=== PATIENT | female | born 1945 | race Caucasian/White ===

== ENCOUNTER 2021-02-26 15:54 | Inpatient (IN) | payer MEDICARE ==
[~2021-02-26] VITALS: Ht 167.6 cm; Wt 65.8 kg
--- NOTE | 2021-02-26 15:54 | NUR ---
PT BIB [facility] FROM [facility] C/O AGGRESSIVE BEHAVIOR TOWARDS STAFF. PT IS AAOX4, NOT IN RESPIRATORY DISTRESS, V/S STABLE, KEPT RESTED AND COMFORTABLE. WILL CONTINUE TO MONITOR.
--- NOTE | 2021-02-26 16:18 | NUR ---
PT SEEN AND EXAMINED BY .
[2021-02-26] MEDS ORDERED: MAGN400O6 PO (16:30)
[2021-02-26] MEDS ORDERED: BISA10SU11 RC (16:30)
[2021-02-26] MEDS ORDERED: TYL2T PO (16:30)
[2021-02-26] MEDS ORDERED: QUET25TA PO (16:30)
[2021-02-26] MEDS ORDERED: ATOR10TA PO (16:30)
[2021-02-26] MEDS ORDERED: ACET-868 PO (16:30)
[2021-02-26] MEDS ORDERED: INSU100V27 SQ (16:30)
[2021-02-26] MEDS ORDERED: NA P133E RC (16:30)
--- NOTE | 2021-02-26 16:30 | NUR ---
ER PHLEB AT BEDSIDE FOR BLOOD DRAW.
--- NOTE | 2021-02-26 16:39 | NUR ---
MOVE PACKET TURNED IN.
[2021-02-26 16:45] LABS: BASOPHILS # (AUTO) 0.1 /CMM (0.0-0.2); BASOPHILS % (AUTO) 0.9 % (0.0-2.0); EOSINOPHILS % (AUTO) 1.3 % (0.0-6.0); HEMATOCRIT 36 % (33-45); HEMOGLOBIN 12.2 g/dL (11.5-14.8); LYMPHOCYTES # (AUTO) 1.3 /CMM (0.8-4.8); LYMPHOCYTES % (AUTO) 15.4 % (20.0-44.0); MEAN CORPUSCULAR HGB CONC 34 g/dl (31.0-36.0); MEAN CORPUSCULAR VOLUME 98 fL (82-100); MONOCYTES # (AUTO) 0.5 /CMM (0.1-1.30); MONOCYTES % (AUTO) 5.9 % (2.0-12.0); NEUTROPHILS # (AUTO) 6.6 /CMM (1.8-8.9); NEUTROPHILS % (AUTO) 76.5 % (43.0-81.0); PLATELET COUNT (AUTO) 268 /CMM (150-450); RED BLOOD CELL COUNT(AUTO) 3.63 MIL/uL (4.0-5.2); WHITE BLOOD COUNT (AUTO) 8.6 K/uL (4.3-11.0)
--- NOTE | 2021-02-26 17:08 | NUR ---
URINE SPECIMEN COLLECTED AND SENT TO LAB.
[2021-02-26 17:20] LABS: ALANINE AMINOTRANSFERASE 47 U/L (12-78); ALBUMIN 3.4 g/dL (3.4-5.0); ALKALINE PHOSPHATASE 87 U/L (46-116); ASPARTATE AMINOTRANSFERASE 18 U/L (15-37); BILIRUBIN,DIRECT 0.1 mg/dL (0.0-0.2); BILIRUBIN,TOTAL 0.3 mg/dL (0.2-1.0); CALCIUM, SERUM 8.9 mg/dL (8.5-10.1); CARBON DIOXIDE 24 mmol/L (21-32); CHLORIDE 100 mmol/L (98-107); CREATININE 0.9 mg/dL (0.6-1.3); POTASSIUM 3.7 mmol/L (3.5-5.1); SODIUM SERUM 134 mmol/L (136-145); TOTAL PROTEIN, SERUM 6.8 g/dL (6.4-8.2); UREA NITROGEN, BLOOD 17 mg/dL (7-18)
[2021-02-26 17:21] LABS: BILIRUBIN,URINE Negative (NEGATIVE); COLOR,URINE YELLOW (YELLOW); LEUKOCYTE ESTERASE ,URINE Negative (NEGATIVE); NITRITE, URINE Negative (NEGATIVE); PH,URINE 5.5 (5.0-8.0); PROTEIN,URINE Negative (NEGATIVE); UGLUCOSE 500 MG/DL mg/dL (NEGATIVE); UROBILINOGEN,URINE 0.2 EU/dL (0.2)
[2021-02-26 17:21] LABS: ACETAMINOPHEN < 2 ug/ml (10-30); ALCOHOL, BLOOD < 3 mg/dL (0-0); GLUCOSE 407 mg/dL (74-106)
[2021-02-26 17:23] LABS: BACTERIA,URINE Rare /HPF (None Seen); SQUAMOUS EPITHELIAL CELL,UR Few /HPF (None Seen); WBC,URINE NONE SEEN /HPF (0-3)
--- NOTE | 2021-02-26 17:28 | NUR ---
PT IS BACK FROM THE CT SCAN.
[2021-02-26] MEDS ORDERED: LORAZEPAM INJ 2 MG/ML VIAL ONE (17:30)
[2021-02-26] MEDS ORDERED: LORAZEPAM INJ 2 MG/ML VIAL IM ONE (17:30)
--- NOTE | 2021-02-26 18:16 | NUR ---
COVID SWAB DONE AND SENT TO LAB
[2021-02-26] MEDS ORDERED: INSULIN REGULAR, HUMAN 100 UNIT/ML 10 ML VIAL SQ ONE (18:30)
[2021-02-26] MEDS ORDERED: IV NS 0.9% 1,000 ML BAG IV ONE (18:30)
[2021-02-26] MEDS ORDERED: INSULIN REGULAR, HUMAN 100 UNIT/ML 10 ML VIAL ONE (18:47)
--- NOTE | 2021-02-26 20:25 | NUR ---
report given to FAA RN for ERICA.
--- NOTE | 2021-02-26 20:47 | NUR ---
Patient taken up to assigned room for ERICA.
[2021-02-26] MEDS ORDERED: MAG HYDROX/AL HYDROX/SIMETH 30 ML UDC PO PRN (21:30)
[2021-02-26] MEDS ORDERED: ACETAMINOPHEN 325 MG TABLET PO PRN (21:30)
[2021-02-26] MEDS ORDERED: BLOOD SUGAR DIAGNOSTIC 1 EACH STRIP IN ONE (21:30)
[2021-02-26] MEDS ORDERED: MAGNESIUM HYDROXIDE 30 ML UDC PO PRN (21:30)
[2021-02-26] MEDS ORDERED: ZOLPIDEM TARTRATE 5 MG TABLET PO PRN (22:00)
[2021-02-26] MEDS ORDERED: DEXTROSE 50%-WATER 50 ML DISP.SYRIN IV PRN (23:30)
[2021-02-27 01:08] VITALS: BP 100/57
--- NOTE | 2021-02-27 01:30 | NUR ---
GPS RN ADMITTING NOTES: PATIENT IS A 75 Y/O FEMALE WHO ARRIVED THIS UNIT AT 2030. PATIENT ARRIVED THIS UNIT VIA GURNEY WITH 1 ER STAFF. PATIENT IS ON A 5150 HOLD FOR DTO/GD. HOLD WAS PLACED ON 02/26/21 AT 20:02. PER HOLD PATIENT HAS BEEN INCREASINGLY AGGRESSIVE AND AGITATED, CONFUSED, DISORIENTED, HITTING STAFF, THROWING FECES AT STAFF, NON COMPLIANT WITH MEDICATION, WANDERS INTO OTHER RESIDENTS ROOMS AND SLEEPING ON THEIR BED, REFUSING REDIRECTION. UPON FACE TO FACE EVALUATION, PATIENT IS A/O X1, FLAT AFFECT, DISHEVELED, DISORGANIZED, CONFUSED. AMBULATORY WITH UNSTEADY GAIT. PATIENT WAS ADVISED OF HER HOLD AND PATIENTS RIGHT BOOKLET GIVEN. PATIENT IS UNDER THE PSYCHIATRIC CARE OF DR. JOSÉ AND THE MEDICAL CARE OF ARUN. PATIENT BELONGINGS WERE INVENTORIED AND CHECKED FOR CONTRABAND. SKIN ASSESSMENT DONE, PICTURES TAKEN AND PLACED IN PATIENT CHART. PATIENT REFUSED TO SIGN ADMISSION PAPERWORK, ACCU CHEK DONE, BS 104MG/DL, MRSA SWAB DONE. BED IN LOWEST POSITION AND LOCKED WITH SIDE RAILS UP X2. BED ALARM ON AND CALL LIGHT WITHIN REACH. FLUID AND SNACKS GIVEN TOLERATED. WILL CONTINUE TO MONITOR Q15MIN ROUNDS FOR SAFETY, MOOD AND BEHAVIOR.
[2021-02-27 06:48] LABS: ALBUMIN 3.3 g/dL (3.4-5.0); BILIRUBIN,TOTAL 0.5 mg/dL (0.2-1.0); CALCIUM, SERUM 8.7 mg/dL (8.5-10.1); CREATININE 0.6 mg/dL (0.6-1.3); POTASSIUM 3.1 mmol/L (3.5-5.1); TOTAL PROTEIN, SERUM 6.5 g/dL (6.4-8.2)
--- NOTE | 2021-02-27 06:57 | NUR ---
GPS RN CLOSING NOTES: PATIENT IS CURRENTLY SLEEPING COMFORTABLY IN BED. SLEPT 2HRS THIS SHIFT. NO S/S OF DISTRESS. RESPIRATION EVEN AND UNLABORED WITH EQUAL RISE AND FALL OF THE CHEST, ON ROOM AIR. BED IN LOWEST POSITION AND LOCKED WITH SIDE RAILS UP X2. CALL CANTU WITHIN REACH. ALL PATIENT CARE NEEDS HAVE BEEN MET ANTICIPATED. WILL CONTINUE TO MONITOR FOR SAFETY, MOOD AND BEHAVIOR AND ENDORSE TO AM SHIFT.
[2021-02-27 06:59] LABS: CHOLESTEROL 154 mg/dL (<200); HDL CHOLESTEROL 54 mg/dL (40-60); LDL 92 mg/dL (0-99); TRIGLYCERIDES 95 mg/dL (30-150)
[2021-02-27 08:00] VITALS: BP 134/72
[2021-02-27] MEDS: BLOOD SUGAR DIAGNOSTIC 1 EACH STRIP IN SCH ×4 (08:08→21:35)
[2021-02-27] MEDS: INSULIN LISPRO/ASPART 100 UNIT/ML CARTRIDGE SQ SCH ×3 (08:08→17:20)
[2021-02-27] MEDS: INSULIN REGULAR, HUMAN 100 UNIT/ML 3 ML VIAL SQ PRN ×4 (08:11→21:47)
--- NOTE | 2021-02-27 08:46 | NUR ---
WOUND CARE CONSULT: PT REFUSED SKIN ASSESSMENT. REVIEWED CHART, NURSING DOCUMENTATION AND PHOTOS WHICH INDICATE RASH TO PERINEUM AND INNER BUTTOCKS. RECOMMENDATIONS MADE FOR SKIN PROTECTION. DISCUSSED WITH NURSING STAFF. IN AGREEMENT WITH PLAN OF CARE. Addendum: 02/27/21 at 0849 by LILY ROJAS WNDNU RASH NOTED TO BE PRESENT ON ADMISSION.
[2021-02-27] MEDS: POTASSIUM CHLORIDE 20 MEQ TAB.PRT.SR PO SCH ×2 (09:37→10:59)
[2021-02-27] MEDS: CLOTRIMAZOLE 1% 15 GM TUBE TP SCH ×2 (11:10→16:27)
[2021-02-27] MEDS: LORAZEPAM 0.5 MG TABLET PO PRN ×2 (15:36→21:36)
[2021-02-27 16:00] VITALS: BP 132/81
[2021-02-27] MEDS: QUETIAPINE FUMARATE 25 MG TABLET PO SCH (16:26)
[2021-02-27] MEDS: busPIRone 5 MG TABLET PO SCH (16:27)
[2021-02-27 17:09] LABS: THYROID STIMULATING HORMONE 2.022 uIU/mL (0.358-3.74); URIC ACID 2.9 mg/dL (2.6-7.2)
[2021-02-27] MEDS: ATORVASTATIN 10 MG TABLET PO SCH (21:35)
--- NOTE | 2021-02-28 02:00 | NUR ---
GPS RN NOTE URINE SAMPLE COLLECTED VIA CLEAN CATCH AND SENT TO LAB PER MD ORDER.
[2021-02-28] MEDS: BLOOD SUGAR DIAGNOSTIC 1 EACH STRIP IN SCH (08:03)
[2021-02-28] MEDS: INSULIN LISPRO/ASPART 100 UNIT/ML CARTRIDGE SQ SCH ×3 (08:04→17:33)
[2021-02-28] MEDS: INSULIN REGULAR, HUMAN 100 UNIT/ML 3 ML VIAL SQ PRN ×2 (08:17→17:34)
[2021-02-28] MEDS: busPIRone 5 MG TABLET PO SCH ×3 (08:40→16:53)
[2021-02-28] MEDS: CLOTRIMAZOLE 1% 15 GM TUBE TP SCH ×2 (08:40→17:29)
[2021-02-28] MEDS: QUETIAPINE FUMARATE 25 MG TABLET PO SCH ×2 (08:40→16:53)
[2021-02-28] MEDS ORDERED: DEXTROSE 50%-WATER 50 ML DISP.SYRIN IV PRN (11:30)
[2021-02-28 11:32] LABS: BASOPHILS % (AUTO) 0.8 % (0.0-2.0); EOSINOPHILS % (AUTO) 1.6 % (0.0-6.0); HEMATOCRIT 38 % (33-45); LYMPHOCYTES # (AUTO) 1.1 /CMM (0.8-4.8); LYMPHOCYTES % (AUTO) 17.6 % (20.0-44.0); MEAN CORPUSCULAR HGB CONC 34 g/dl (31.0-36.0); MEAN CORPUSCULAR VOLUME 96 fL (82-100); MONOCYTES # (AUTO) 0.5 /CMM (0.1-1.30); MONOCYTES % (AUTO) 7.5 % (2.0-12.0); NEUTROPHILS # (AUTO) 4.7 /CMM (1.8-8.9); NEUTROPHILS % (AUTO) 72.5 % (43.0-81.0); PLATELET COUNT (AUTO) 314 /CMM (150-450); RED BLOOD CELL COUNT(AUTO) 3.95 MIL/uL (4.0-5.2); WHITE BLOOD COUNT (AUTO) 6.5 K/uL (4.3-11.0)
[2021-02-28] MEDS: BLOOD SUGAR DIAGNOSTIC 1 EACH STRIP VI SCH ×3 (12:00→21:11)
[2021-02-28 12:47] LABS: ALBUMIN 3.8 g/dL (3.4-5.0); BILIRUBIN,TOTAL 0.5 mg/dL (0.2-1.0); CALCIUM, SERUM 9.6 mg/dL (8.5-10.1); CREATININE 0.6 mg/dL (0.6-1.3); POTASSIUM 3.8 mmol/L (3.5-5.1); TOTAL PROTEIN, SERUM 7.6 g/dL (6.4-8.2)
--- NOTE | 2021-02-28 14:21 | NUR ---
Point of Contact: FAZAL called the pt.s point of contact, Josh Landis [phone] to gather collateral information. Josh states he was dating this pt. for about 4 years and then the pt. began to decline cognitively. Per Josh, the pt. was previously diagnosed with Dementia by her PCP: Dr. Burr [phone] about 2 years ago and Josh continue to care for the pt. until pt. needed higher level of care and was placed in a facility. Per Josh, the pt.s only living relative is her brother, Misael Shepherd [phone] that was involved in the pt.'s life about 1 year ago. However, per Josh, Misael changed his number and did not update Josh with new contact information. Per Josh, he has not been able to contact Misael since. Per Josh, Misael was informed of pt.'s diagnosis and cognitive decline.
--- NOTE | 2021-02-28 14:23 | NUR ---
Initial Discharge Plan: The pt. comes from [facility] ([facility]) located at [address] [place] [id number]; ([phone]). SW unable to state if she would like to return to facility. FAZAL called [facility] and spoke with Shannan in admissions who stated that they are unable to accept this pt. as the pt. requires a higher level of care. FAZAL will continue to collaborate with pt., family & IDT to ensure a safe & appropriate discharge plan.
[2021-02-28 16:00] VITALS: BP 100/56
[2021-02-28 20:42] VITALS: BP 142/88
[2021-02-28] MEDS ORDERED: QUETIAPINE FUMARATE 25 MG TABLET PO SCH (21:00)
[2021-02-28] MEDS: ATORVASTATIN 10 MG TABLET PO SCH (21:10)
[2021-03-01 08:00] VITALS: BP 144/70
[2021-03-01] MEDS: BLOOD SUGAR DIAGNOSTIC 1 EACH STRIP VI SCH ×4 (08:23→22:00)
[2021-03-01] MEDS: INSULIN LISPRO/ASPART 100 UNIT/ML CARTRIDGE SQ SCH ×3 (08:23→17:42)
[2021-03-01] MEDS: INSULIN REGULAR, HUMAN 100 UNIT/ML 3 ML VIAL SQ PRN ×3 (08:25→17:43)
[2021-03-01] MEDS: busPIRone 5 MG TABLET PO SCH ×2 (08:26→12:23)
[2021-03-01] MEDS: QUETIAPINE FUMARATE 25 MG TABLET PO SCH ×3 (08:27→20:45)
[2021-03-01] MEDS: CLOTRIMAZOLE 1% 15 GM TUBE TP SCH ×2 (08:37→16:04)
[2021-03-01 16:00] VITALS: BP_SYST 106; BP_SYST 130; BP_DIAS 66; BP_DIAS 83
[2021-03-01] MEDS: DIVALPROEX SODIUM 125 MG CAP.SPRINK PO SCH (16:03)
[2021-03-01 20:30] VITALS: BP 110/61
[2021-03-01] MEDS: ATORVASTATIN 10 MG TABLET PO SCH (22:00)
[2021-03-02] MEDS: INSULIN LISPRO/ASPART 100 UNIT/ML CARTRIDGE SQ SCH ×3 (07:30→17:20)
[2021-03-02] MEDS: BLOOD SUGAR DIAGNOSTIC 1 EACH STRIP VI SCH ×4 (07:30→21:27)
--- NOTE | 2021-03-02 07:46 | NUR ---
Pt. is irritable, refused Accu check and refused for Insulin Lispro/Aspart. Explained on the importance and still refusing and said "no". Pt. refused also for V/S checked. Will continue to monitor for safety.
[2021-03-02] MEDS: DIVALPROEX SODIUM 125 MG CAP.SPRINK PO SCH ×4 (09:00→16:08)
[2021-03-02] MEDS: CLOTRIMAZOLE 1% 15 GM TUBE TP SCH ×2 (09:00→17:27)
[2021-03-02] MEDS: QUETIAPINE FUMARATE 25 MG TABLET PO SCH ×4 (09:00→21:17)
--- NOTE | 2021-03-02 10:00 | NUR ---
Roger Jerez LITHOPONE CHARGER in the unit and notified that pt. refused, v/s checked, refused Insulin med and refused po meds.
[2021-03-02] MEDS: INSULIN REGULAR, HUMAN 100 UNIT/ML 3 ML VIAL SQ PRN ×2 (12:09→17:19)
--- NOTE | 2021-03-02 15:38 | NUR ---
Pt. refused for v/s checked. Addendum: 03/02/21 at 1539 by PETER HERRON RN above documentation is not for this pt.
[2021-03-02 16:00] VITALS: BP 141/68
[2021-03-02] MEDS: LORAZEPAM 0.5 MG TABLET PO PRN (19:14)
--- NOTE | 2021-03-02 19:16 | NUR ---
RN NOTE: ANXIETY PATIENT IS NOTED TO BE VERY ANXIOUS, RESTLESS, LOUD, SCREAMING, YELLING, AGITATED, PRN ATIVAN 1 MG PO ADMINISTERED ORDERED. WILL CONTINUE TO MONITOR.
[2021-03-02 20:00] VITALS: BP 128/76
[2021-03-02 20:02] VITALS: BP 128/76
[2021-03-02] MEDS: ATORVASTATIN 10 MG TABLET PO SCH (21:17)
[2021-03-02] MEDS: *INSULIN REGULAR(HUMULIN R)HUM 100 UNIT/ML VIAL SQ PRN (21:31)
--- NOTE | 2021-03-03 06:39 | NUR ---
RN NOTE PATIENT IS ASLEEP COMFORTABLY AT THIS TIME. WILL CONTINUE TO MONITOR.
[2021-03-03] MEDS: INSULIN LISPRO/ASPART 100 UNIT/ML CARTRIDGE SQ SCH ×3 (07:57→17:30)
[2021-03-03] MEDS: BLOOD SUGAR DIAGNOSTIC 1 EACH STRIP VI SCH ×4 (07:57→22:14)
[2021-03-03 08:00] VITALS: BP 110/59
[2021-03-03] MEDS: QUETIAPINE FUMARATE 25 MG TABLET PO SCH ×3 (09:03→21:35)
[2021-03-03] MEDS: DIVALPROEX SODIUM 125 MG CAP.SPRINK PO SCH ×3 (09:03→16:10)
[2021-03-03] MEDS: CLOTRIMAZOLE 1% 15 GM TUBE TP SCH ×2 (09:17→16:16)
[2021-03-03] MEDS: INSULIN REGULAR, HUMAN 100 UNIT/ML 3 ML VIAL SQ PRN (11:54)
[2021-03-03] MEDS: LORAZEPAM 0.5 MG TABLET PO PRN (12:21)
--- NOTE | 2021-03-03 12:53 | NUR ---
RN NOTES NOTED PATIENT WAS ANXIOUS AND AGITATED , ATIVAN 1 MG 2 TAB P.O. WAS GIVEN. WILL CONTINUE TO MONITOR.
[2021-03-03 16:00] VITALS: BP 103/63
[2021-03-03 20:00] VITALS: BP_SYST 130; BP_SYST 142; BP_DIAS 82; BP_DIAS 89
[2021-03-03 21:18] VITALS: BP 142/89
[2021-03-03] MEDS: ATORVASTATIN 10 MG TABLET PO SCH (21:35)
[2021-03-03] MEDS: *INSULIN REGULAR(HUMULIN R)HUM 100 UNIT/ML VIAL SQ PRN (22:24)
--- NOTE | 2021-03-03 22:31 | NUR ---
GPS RN NOTES: PATIENT 2200 BS 350MG/DL. 10 UNITS REGULAR INSULIN ADMINISTERED PER SLIDING SCALE. WILL CONTINUE TO MONITOR.
--- NOTE | 2021-03-04 06:52 | NUR ---
GPS RN CLOSING NOTES: PATIENT IS AWAKE, A/O X1. PATIENT SLEPT 2HR THIS SHIFT. WEEKLY SKIN ASSESSMENT DONE, PICTURES TAKEN AND PLACED IN PATIENT CHART. NO NEW SKIN ISSUES NOTED. NO S/S OF DISTRESS. RESPIRATION EVEN AND UNLABORED WITH EQUAL RISE AND FALL OF THE CHEST ON ROOM AIR. ALL PATIENT CARE NEEDS HAVE BEEN MET ANTICIPATED. WILL CONTINUE TO MONITOR FOR SAFETY, MOOD AND BEHAVIOR AND ENDORSE TO AM SHIFT.
[2021-03-04] MEDS: BLOOD SUGAR DIAGNOSTIC 1 EACH STRIP VI SCH ×4 (07:28→21:18)
[2021-03-04] MEDS: INSULIN REGULAR, HUMAN 100 UNIT/ML 3 ML VIAL SQ PRN ×2 (07:31→11:38)
[2021-03-04] MEDS: INSULIN LISPRO/ASPART 100 UNIT/ML CARTRIDGE SQ SCH ×3 (07:35→16:44)
[2021-03-04 08:00] VITALS: BP 119/65
[2021-03-04] MEDS: DIVALPROEX SODIUM 125 MG CAP.SPRINK PO SCH ×3 (08:09→16:14)
[2021-03-04] MEDS: QUETIAPINE FUMARATE 25 MG TABLET PO SCH ×4 (08:09→21:02)
[2021-03-04] MEDS: CLOTRIMAZOLE 1% 15 GM TUBE TP SCH ×2 (08:09→16:13)
[2021-03-04] MEDS: LORAZEPAM 0.5 MG TABLET PO PRN (13:46)
--- NOTE | 2021-03-04 13:47 | NUR ---
RN NOTE: ANXIETY PT SITTING IN CHAIR YELLING AND VISIBLY AGITATED. UNABLE TO BE REDIRECTED. MEDICATED WITH ATIVAN 1MG PO PRN.
--- NOTE | 2021-03-04 13:58 | NUR ---
SNF Referral: FAZAL faxed a referral to [facility] with attn to Ann to the fax number: [phone].
[2021-03-04 16:00] VITALS: BP 129/66
[2021-03-04 20:00] VITALS: BP 112/69
[2021-03-04] MEDS: ATORVASTATIN 10 MG TABLET PO SCH (21:01)
[2021-03-04] MEDS: *INSULIN REGULAR(HUMULIN R)HUM 100 UNIT/ML VIAL SQ PRN (21:17)
[2021-03-05] MEDS: LORAZEPAM 0.5 MG TABLET PO PRN (03:29)
--- NOTE | 2021-03-05 03:29 | NUR ---
GPS-RN NOTES: ANXIETY PATIENT IS ANXIOUS AND RESTLESS. PRN ATIVAN 1MG PO GIVEN. WILL CONTINUE TO MONITOR FOR PT'S SAFETY.
[2021-03-05] MEDS: BLOOD SUGAR DIAGNOSTIC 1 EACH STRIP VI SCH ×4 (07:22→21:19)
[2021-03-05] MEDS: INSULIN REGULAR, HUMAN 100 UNIT/ML 3 ML VIAL SQ PRN ×3 (07:27→16:35)
[2021-03-05] MEDS: INSULIN LISPRO/ASPART 100 UNIT/ML CARTRIDGE SQ SCH ×3 (07:29→16:36)
[2021-03-05 08:00] VITALS: BP 125/78
[2021-03-05] MEDS: QUETIAPINE FUMARATE 25 MG TABLET PO SCH ×4 (08:25→21:06)
[2021-03-05] MEDS: CLOTRIMAZOLE 1% 15 GM TUBE TP SCH ×2 (08:25→16:15)
[2021-03-05] MEDS: DIVALPROEX SODIUM 125 MG CAP.SPRINK PO SCH ×3 (08:25→16:15)
[2021-03-05] MEDS ORDERED: INSULIN LISPRO/ASPART 100 UNIT/ML CARTRIDGE SQ SCH (12:00)
--- NOTE | 2021-03-05 12:04 | NUR ---
RN NOTE: NEW ORDER FOR 10 UNITS HUMALOG HELD DUE TO PREVIOUS ADMINISTRATION OF PREVIOUS ORDER FOR 7 UNITS. WILL ADMINISTER NEXT AC DOSE
[2021-03-05 16:00] VITALS: BP 98/50
[2021-03-05 19:50] VITALS: BP 105/68
[2021-03-05] MEDS: ATORVASTATIN 10 MG TABLET PO SCH (21:06)
[2021-03-05] MEDS: *INSULIN REGULAR(HUMULIN R)HUM 100 UNIT/ML VIAL SQ PRN (21:20)
[2021-03-05] MEDS: TEMAZEPAM 7.5 MG CAPSULE PO PRN (23:14)
--- NOTE | 2021-03-05 23:15 | NUR ---
GPS-RN NOTES: INSOMNIA PATIENT IS UNABLE TO SLEEP. PRN RESTORIL 7.5MG PO GIVEN. WILL CONTINUE TO MONITOR.
[2021-03-06] MEDS: BLOOD SUGAR DIAGNOSTIC 1 EACH STRIP VI SCH ×4 (07:27→21:45)
[2021-03-06] MEDS: INSULIN REGULAR, HUMAN 100 UNIT/ML 3 ML VIAL SQ PRN ×2 (07:32→11:40)
[2021-03-06] MEDS: INSULIN LISPRO/ASPART 100 UNIT/ML CARTRIDGE SQ SCH ×3 (07:33→16:45)
[2021-03-06 08:00] VITALS: BP 149/79
[2021-03-06] MEDS: QUETIAPINE FUMARATE 25 MG TABLET PO SCH ×6 (08:34→21:45)
[2021-03-06] MEDS: CLOTRIMAZOLE 1% 15 GM TUBE TP SCH ×3 (08:34→17:44)
[2021-03-06] MEDS: DIVALPROEX SODIUM 125 MG CAP.SPRINK PO SCH ×5 (08:34→17:44)
--- NOTE | 2021-03-06 08:42 | NUR ---
RN NOTE: MEDICATION REFUSAL PT REFUSED ALL AM MEDICATIONS. PT BECAME VERBALLY AGGRESSIVE. PT STARTED TO THROW TOWELS AND SWING ARMS. ATTEMPTED TO EDUCATE PT RE IMPORTANCE OF MEDICATION COMPLIANCE. PT CONT'D TO REFUSE X 3. WILL CONT TO MONITOR FOR SAFETY AND BEHAVIOR PER PROTOCOL
--- NOTE | 2021-03-06 10:52 | NUR ---
RN NOTE: DR. VILLATORO IN TO ASSESS PT. PT IS CALMER VS IN THE AM. MEDICATED WITH WITH AM DEPAKOTE AND SEROQUEL.
[2021-03-06] MEDS: LORAZEPAM 0.5 MG TABLET PO PRN (12:39)
--- NOTE | 2021-03-06 12:39 | NUR ---
RN NOTE:ANXIETY PT VISIBLY AGITATED AND ANXIOUS. UNABLE TO BE REDIRECTED. YELLLING AND CRYING. HITTING HANDS ON TABLE. MEDICATED WITH ATIVAN 1MG PO PRN. WILL CONT TO MONITOR PT FOR SAFETY, BEHAVIOR AND EFFECTIVENESS OF PRN MEDICATION.
[2021-03-06 16:00] VITALS: BP 105/67
[2021-03-06 20:00] VITALS: BP 126/59
[2021-03-06] MEDS: ATORVASTATIN 10 MG TABLET PO SCH (21:45)
[2021-03-06] MEDS: *INSULIN REGULAR(HUMULIN R)HUM 100 UNIT/ML VIAL SQ PRN (21:47)
[2021-03-07] MEDS: BLOOD SUGAR DIAGNOSTIC 1 EACH STRIP VI SCH ×4 (07:42→21:31)
[2021-03-07 08:00] VITALS: BP 114/75
[2021-03-07] MEDS: INSULIN LISPRO/ASPART 100 UNIT/ML CARTRIDGE SQ SCH ×3 (08:45→17:23)
[2021-03-07] MEDS: INSULIN REGULAR, HUMAN 100 UNIT/ML 3 ML VIAL SQ PRN ×3 (08:46→17:21)
[2021-03-07] MEDS: QUETIAPINE FUMARATE 25 MG TABLET PO SCH ×4 (08:47→21:31)
[2021-03-07] MEDS: CLOTRIMAZOLE 1% 15 GM TUBE TP SCH ×2 (08:52→16:27)
[2021-03-07] MEDS: DIVALPROEX SODIUM 125 MG CAP.SPRINK PO SCH ×3 (09:24→16:16)
[2021-03-07 16:00] VITALS: BP 130/66
[2021-03-07] MEDS: LORAZEPAM 0.5 MG TABLET PO PRN (16:36)
--- NOTE | 2021-03-07 16:43 | NUR ---
RN-NOTES NOTED PATIENT SCREAMING AND YELLING IN THE DAY ROOM,REDIRECTED AND REORIENTED PATIENT. ATIVAN 1MG P.O GIVEN PRN ORDER. WILL CONT. MONITORING FOR SAFETY AND BEHAVIOR.
--- NOTE | 2021-03-07 17:40 | NUR ---
RN-NOTES PATIENT IN THE DAY ROOM,CALM NO ACUTE DISTRESS NOTED.
[2021-03-07 19:45] VITALS: BP 162/75
[2021-03-07 20:00] VITALS: BP 162/75
[2021-03-07] MEDS: ATORVASTATIN 10 MG TABLET PO SCH (21:31)
[2021-03-08 08:00] VITALS: BP 133/61
[2021-03-08] MEDS: BLOOD SUGAR DIAGNOSTIC 1 EACH STRIP VI SCH ×4 (08:12→21:46)
[2021-03-08] MEDS: DIVALPROEX SODIUM 125 MG CAP.SPRINK PO SCH ×3 (08:36→16:10)
[2021-03-08] MEDS: QUETIAPINE FUMARATE 25 MG TABLET PO SCH ×4 (08:36→21:42)
[2021-03-08] MEDS: INSULIN LISPRO/ASPART 100 UNIT/ML CARTRIDGE SQ SCH ×3 (08:38→17:31)
[2021-03-08] MEDS: INSULIN REGULAR, HUMAN 100 UNIT/ML 3 ML VIAL SQ PRN ×3 (08:48→17:32)
[2021-03-08] MEDS: CLOTRIMAZOLE 1% 15 GM TUBE TP SCH ×2 (08:54→17:44)
[2021-03-08 16:00] VITALS: BP 143/70
[2021-03-08 20:28] VITALS: BP 124/66
[2021-03-08] MEDS: ATORVASTATIN 10 MG TABLET PO SCH (21:42)
[2021-03-08] MEDS: *INSULIN REGULAR(HUMULIN R)HUM 100 UNIT/ML VIAL SQ PRN (21:50)
[2021-03-09] MEDS: TEMAZEPAM 7.5 MG CAPSULE PO PRN (01:59)
[2021-03-09] MEDS: BLOOD SUGAR DIAGNOSTIC 1 EACH STRIP VI SCH ×4 (07:31→22:09)
[2021-03-09] MEDS: INSULIN LISPRO/ASPART 100 UNIT/ML CARTRIDGE SQ SCH ×3 (07:49→17:09)
[2021-03-09 08:00] VITALS: BP 142/65
[2021-03-09] MEDS: QUETIAPINE FUMARATE 25 MG TABLET PO SCH ×4 (08:30→21:45)
[2021-03-09] MEDS: DIVALPROEX SODIUM 125 MG CAP.SPRINK PO SCH ×3 (08:30→17:00)
[2021-03-09] MEDS: CLOTRIMAZOLE 1% 15 GM TUBE TP SCH ×2 (08:45→17:03)
[2021-03-09] MEDS: INSULIN REGULAR, HUMAN 100 UNIT/ML 3 ML VIAL SQ PRN ×2 (08:47→12:21)
--- NOTE | 2021-03-09 10:38 | NUR ---
RN-NOTES CROZE CUTTER HELPER MICHELLE IN THE UNIT WITH VERBAL ORDER TO INCREASE INSULIN HUMALOG DOSE 10 UNITS SQ AC.NOTED AND CARRIED OUT.
[2021-03-09] MEDS: LORAZEPAM 0.5 MG TABLET PO PRN ×2 (10:58→21:47)
--- NOTE | 2021-03-09 11:00 | NUR ---
RN-NOTES NOTED PATIENT SCREAMING AND YELLING IN THE DAY ROOM,REDIRECTED AND REORIENTED PATIENT. ATIVAN 1MG P.O GIVEN PRN ORDER. WILL CONT. MONITORING FOR SAFETY AND BEHAVIOR.
[2021-03-09 16:00] VITALS: BP 136/78
[2021-03-09 20:21] VITALS: BP 112/60
[2021-03-09] MEDS: ATORVASTATIN 10 MG TABLET PO SCH (21:45)
--- NOTE | 2021-03-09 21:55 | NUR ---
MS RN: AGITATION Patient restless, agitated, removed her clothing, screaming loud. Unable to control behavior anxiety. PRN Ativan given, will reassess. Maintained safety.
[2021-03-09] MEDS: *INSULIN REGULAR(HUMULIN R)HUM 100 UNIT/ML VIAL SQ PRN (22:38)
--- NOTE | 2021-03-09 23:00 | NUR ---
MS RN: REASSESSMENT AFTER ATIVAN Patient in bed, calm sleeping, arouses easily. PRN Ativan effective. Maintained safety.
[2021-03-10] MEDS: BLOOD SUGAR DIAGNOSTIC 1 EACH STRIP VI SCH ×4 (07:30→22:02)
[2021-03-10] MEDS: INSULIN LISPRO/ASPART 100 UNIT/ML CARTRIDGE SQ SCH ×3 (07:30→17:09)
[2021-03-10 08:00] VITALS: BP 110/59
--- NOTE | 2021-03-10 08:00 | NUR ---
RNO OPENING NOTE Patient in bed, awake. Tolerating room air, denies shortness of breath.Follow simple commands. denies any si/hi/ah/vh at this time. med compliant. calm. Bed in low position. Remains under psyche care.will monitor q15 for safety.
--- NOTE | 2021-03-10 08:14 | NUR ---
RN NOTE PT REFUSED MORNING BS CHECK AND INSULIN LISPRO. STATES THAT SHE DOESN'T WANT ANY NEEDLES. INFORMED PT OF PROS AND CONS OF REFUSING BLOOD SUGAR CHECKS AND INSULIN. NO S/S OF HYPO/HYPERGLYCEMIA. WILL CONTINUE TO MONITOR.
[2021-03-10] MEDS: QUETIAPINE FUMARATE 25 MG TABLET PO SCH ×4 (09:30→21:07)
[2021-03-10] MEDS: CLOTRIMAZOLE 1% 15 GM TUBE TP SCH ×2 (09:30→16:03)
[2021-03-10] MEDS: DIVALPROEX SODIUM 125 MG CAP.SPRINK PO SCH ×3 (09:32→16:03)
[2021-03-10] MEDS: LORAZEPAM 0.5 MG TABLET PO PRN ×2 (15:28→23:51)
[2021-03-10 16:00] VITALS: BP 130/65
[2021-03-10] MEDS: INSULIN REGULAR, HUMAN 100 UNIT/ML 3 ML VIAL SQ PRN (17:10)
[2021-03-10 20:29] VITALS: BP 123/68
[2021-03-10] MEDS: ATORVASTATIN 10 MG TABLET PO SCH (21:07)
--- NOTE | 2021-03-10 21:17 | NUR ---
GPS RN NOTES PATIENT BS IS 106. NO INSULIN GIVEN PER SLIDING SCALE.
[2021-03-10] MEDS: TEMAZEPAM 7.5 MG CAPSULE PO PRN (22:32)
--- NOTE | 2021-03-10 22:37 | NUR ---
GPS RN NOTES PATIENT BEING RESTLESS AND NOT SLEEPING. GIVEN RESTORIL PRN PER NURSE CLINICAL ASSESSMENT.
--- NOTE | 2021-03-10 23:53 | NUR ---
GPS RN NOTES 75 MINUTES LATER AFTER RESTORIL, PATIENT INSOMNIA STILL NOT CORRECTED. PATIENT STILL RESTLESS. GIVEN ATIVAN PRN.
[2021-03-11 00:22] VITALS: BP 123/68
--- NOTE | 2021-03-11 06:37 | NUR ---
GPS RN CLOSING NOTE PATIENT IN YOLANDA CHAIR WITH EYES CLOSED, EASY TO AROUSE. SLEPT INTERMITTENTLY. DISORIENTED. NO S/S OF DISTRESS. NO C/O PAIN. ALL NEEDS ATTENDED. ALL SCHED MEDS ADMINISTERED. SAFETY KEPT THE WHOLE SHIFT. NO SIGNIFICANT CHANGE SINCE LAST SHIFT. WILL ENDORSE CARE TO MORNING RN.
[2021-03-11] MEDS: BLOOD SUGAR DIAGNOSTIC 1 EACH STRIP VI SCH ×4 (07:21→21:47)
[2021-03-11] MEDS: INSULIN REGULAR, HUMAN 100 UNIT/ML 3 ML VIAL SQ PRN ×3 (07:39→17:37)
[2021-03-11] MEDS: INSULIN LISPRO/ASPART 100 UNIT/ML CARTRIDGE SQ SCH ×3 (07:44→17:31)
[2021-03-11 08:00] VITALS: BP 123/63
--- NOTE | 2021-03-11 09:00 | NUR ---
RN NOTE- PT IN YOLANDA CHAIR, CONFUSED CALM AT PRESENT MED COMPLIANT PO INTAKE GOOD NO BEHAVIORAL ISSUES
[2021-03-11] MEDS: DIVALPROEX SODIUM 125 MG CAP.SPRINK PO SCH ×3 (09:14→17:29)
[2021-03-11] MEDS: QUETIAPINE FUMARATE 25 MG TABLET PO SCH ×3 (09:14→17:29)
[2021-03-11] MEDS: CLOTRIMAZOLE 1% 15 GM TUBE TP SCH ×2 (09:15→17:29)
--- NOTE | 2021-03-11 15:22 | NUR ---
SNF Contact: Ann ([phone]) from [facility] contacted the SW and stated that the pt was accepted to their facility.
[2021-03-11 15:30] LABS: BASOPHILS % (AUTO) 0.6 % (0.0-2.0); EOSINOPHILS % (AUTO) 3.4 % (0.0-6.0); HEMATOCRIT 38 % (33-45); HEMOGLOBIN 12.8 g/dL (11.5-14.8); LYMPHOCYTES # (AUTO) 1.7 /CMM (0.8-4.8); LYMPHOCYTES % (AUTO) 24.6 % (20.0-44.0); MEAN CORPUSCULAR HGB CONC 34 g/dl (31.0-36.0); MEAN CORPUSCULAR VOLUME 98 fL (82-100); MONOCYTES # (AUTO) 0.6 /CMM (0.1-1.30); MONOCYTES % (AUTO) 9.1 % (2.0-12.0); NEUTROPHILS # (AUTO) 4.3 /CMM (1.8-8.9); NEUTROPHILS % (AUTO) 62.3 % (43.0-81.0); PLATELET COUNT (AUTO) 258 /CMM (150-450); RED BLOOD CELL COUNT(AUTO) 3.87 MIL/uL (4.0-5.2)
[2021-03-11 15:55] LABS: ALBUMIN 3.7 g/dL (3.4-5.0); BILIRUBIN,TOTAL 0.3 mg/dL (0.2-1.0); CALCIUM, SERUM 9.7 mg/dL (8.5-10.1); CREATININE 0.8 mg/dL (0.6-1.3); MAGNESIUM 2.1 mg/dL (1.8-2.4); POTASSIUM 3.6 mmol/L (3.5-5.1); TOTAL PROTEIN, SERUM 7.5 g/dL (6.4-8.2)
--- NOTE | 2021-03-11 15:58 | NUR ---
Point of Contact: SW called the pt.s point of contact, Josh Landis [phone] and informed him that the pt is going to be discharged tomorrow.
[2021-03-11 16:00] VITALS: BP 117/69
--- NOTE | 2021-03-11 19:44 | NUR ---
Opening Notes: Patient is in [place] chair, awake. Tolerating room air, no c/o and s/s of pain and discomfort.Follow simple commands. denies any si/hi/ah/vh at this time. med compliant as reported . calm. Bed in low position. Remains under psyche care.will monitor q15 for safety.
[2021-03-11 20:00] VITALS: BP 125/72
[2021-03-11] MEDS ORDERED: QUETIAPINE FUMARATE 100 MG TABLET PO SCH (21:00)
[2021-03-11] MEDS: TEMAZEPAM 7.5 MG CAPSULE PO PRN (21:08)
[2021-03-11] MEDS: ATORVASTATIN 10 MG TABLET PO SCH (21:09)
[2021-03-11] MEDS: *INSULIN REGULAR(HUMULIN R)HUM 100 UNIT/ML VIAL SQ PRN (21:51)
[2021-03-11] MEDS: LORAZEPAM 0.5 MG TABLET PO PRN (22:15)
--- NOTE | 2021-03-12 05:48 | NUR ---
CLOSING NOTE PATIENT IN BED SLEEPING QUIETLY. NO S/S OF DISTRESS. NO C/O PAIN SHILA. ALL NEEDS ATTENDED. ALL SCHED MEDS ADMINISTERED. SAFETY KEPT THE WHOLE SHIFT. DID NOT REPORT ANY SI. NO SIGNIFICANT CHANGE SINCE LAST SHIFT. WILL ENDORSE CARE TO MORNING RN.
[2021-03-12] MEDS: INSULIN LISPRO/ASPART 100 UNIT/ML CARTRIDGE SQ SCH ×2 (07:40→12:20)
[2021-03-12] MEDS: INSULIN REGULAR, HUMAN 100 UNIT/ML 3 ML VIAL SQ PRN ×2 (07:43→12:19)
[2021-03-12] MEDS: BLOOD SUGAR DIAGNOSTIC 1 EACH STRIP VI SCH ×2 (07:44→12:17)
[2021-03-12 08:00] VITALS: BP 106/55
[2021-03-12] MEDS: QUETIAPINE FUMARATE 25 MG TABLET PO SCH ×2 (08:28→13:13)
[2021-03-12] MEDS: CLOTRIMAZOLE 1% 15 GM TUBE TP SCH (08:28)
[2021-03-12] MEDS: DIVALPROEX SODIUM 125 MG CAP.SPRINK PO SCH ×2 (08:28→13:13)
--- NOTE | 2021-03-12 09:00 | NUR ---
RN NOTE- CONFUSED CALM AT PRESENT MED COMPLIANT PO INTAKE GOOD NO BEHAVIORAL ISSUES COVID TEST FOR DC COMPLETED
--- NOTE | 2021-03-12 11:33 | NUR ---
Discharge Note: Pt will be discharged to [facility] ([facility]) located at [address] [place] [address]; ([phone]). Pt will be transported via [facility] at 12pm. Pts partner, Josh Landis ([phone]), agreed to this placement. Upon discharge, the pt appears to be in a dysphoric mood and presents with a distressed affect. Pt appears to be oriented x2 (time and self). Pt appears to be groomed and appropriately dressed. Pt appears to be ambulatory with an unsteady gait. Pt denies suicidal and homicidal ideation and denied visual and auditory hallucinations. Pt will continue to follow up with pts psychiatrist, Dr. Rosen, located at [address] [address], [place] [address]; ) and pts rn recruitment, Dr. Moscoso, located at [address] [facility], [address] [place] [address]; . Pt was not able to sign the Choice of Vendor form due to pts psychosis. RN and SW cosigned and the form was placed in the chart. The multidisciplinary exit care form was done, printed, signed, and given to the patient.
--- NOTE | 2021-03-12 13:50 | NUR ---
RN NOTE- PT DC AT THIS TIME TO [facility] VIA AMBULANCE. PT IS ALERT ORIENTED TO PERSON ONLY. CONFUSED CALM DIRECTABLE. PT REFUSED SKIN CHECK PHOTOS.. BECAME AGITATED. VS STABLE, BELONGINGS RETURNED TO PT. AFTERCARE REPORT PHONED TO FACILITY SPOKE Lizzy FERMIN RN. ID [id number] REMOVED. ESCORTED OFF UNIT BY STAFF.
== END 2021-03-12 13:50 | DRG 885 ==
LOC: ER 16:12 → GPS 20:11
PROVIDERS: ADMIT Psychiatry & Neurology Psychiatry; ATTEND Nurse Practitioner Acute Care
DX: F20.9 Schizophrenia, unspecified (principal); E11.65 Type 2 diabetes mellitus with hyperglycemia; F03.91 Unspecified dementia, unspecified severity, with behavioral disturbance; G93.49 Other encephalopathy; E22.2 Syndrome of inappropriate secretion of antidiuretic hormone; F29 Unspecified psychosis not due to a substance or known physiological condition; Z20.822 Contact with and (suspected) exposure to COVID-19; E78.5 Hyperlipidemia, unspecified; Z79.4 Long term (current) use of insulin; Z79.899 Other long term (current) drug therapy; E86.1 Hypovolemia; Z91.14 Patient's other noncompliance with medication regimen; E87.6 Hypokalemia
CPT/HCPCS: 36415; 70450-TC; 80048-TC; 80053-TC; 80061-TC; 80076-TC; 81001; 82533; 82962-TC; 83735-TC; 84300-TC; 84443-TC; 84550-TC; 85025-TC; 87081-TC; 97116-TC; 97530-TC; C9803; G0480; J1815; J2060; J7030

== ENCOUNTER 2022-11-04 00:37 | Inpatient (IN) | payer MEDICARE, OTHER ==
[~2022-11-04] VITALS: Ht 157.5 cm; Wt 65.8 kg
[2022-11-04] VITALS (67 sets, daily range): BP systolic 81–149; BP diastolic 38–83
[~2022-11-04 00:37] MED LIST: ACET-868 PO; ATOR10TA PO; BISA10SU11 RC; INSU100V27 SQ; MAGN400O6 PO; NA P133E RC; TYL2T PO
--- NOTE | 2022-11-04 01:10 | NUR ---
EDMUNDO AGUSTIN FOR DIARHEA X 3 DAYS. PATIENT IS AAOX0, RESPONDS TO VERBAL/ NON VERBAL STIMULI. PLACED COMFORTABLY IN BED. ATTACHED TO MONITOR. VITALS CHECKED.
--- NOTE | 2022-11-04 01:15 | NUR ---
PERINEAL CARE DONE AT BEDSIDE
--- NOTE | 2022-11-04 01:46 | NUR ---
RFA #20G S/L BLOOD COLLECTED AND SENT TO LAB
--- NOTE | 2022-11-04 01:52 | NUR ---
ACCUCHECK DONE. BS OF 97mg/dl
--- NOTE | 2022-11-04 01:58 | NUR ---
URINE SPECIMEN SENT TO LAB
[2022-11-04] MEDS ORDERED: IV NS 0.9% 1,000 ML BAG IV ONE ×2 (02:00→04:30)
--- NOTE | 2022-11-04 02:09 | NUR ---
PT TAKEN TO CT VIA LEIF
[2022-11-04 02:19] LABS: BASOPHILS % (AUTO) 0.1 % (0.0-2.0); HEMATOCRIT 36 % (33-45); HEMOGLOBIN 12.2 g/dL (11.5-14.8); LYMPHOCYTES # (AUTO) 0.8 K/uL (0.8-4.8); LYMPHOCYTES % (AUTO) 10.4 % (20.0-44.0); MEAN CORPUSCULAR HGB CONC 34 g/dl (31.0-36.0); MEAN CORPUSCULAR VOLUME 95 fL (82-100); MONOCYTES # (AUTO) 0.4 K/uL (0.1-1.30); MONOCYTES % (AUTO) 5.2 % (2.0-12.0); NEUTROPHILS # (AUTO) 6.3 K/uL (1.8-8.9); NEUTROPHILS % (AUTO) 82.3 % (43.0-81.0); RED BLOOD CELL COUNT(AUTO) 3.76 MIL/uL (4.0-5.2); WHITE BLOOD COUNT (AUTO) 7.7 K/uL (4.3-11.0)
[2022-11-04 02:22] LABS: BILIRUBIN,URINE NEGATIVE (NEGATIVE); COLOR,URINE DARK YELLOW (YELLOW); LEUKOCYTE ESTERASE ,URINE 1+ (NEGATIVE); NITRITE, URINE POSITIVE (NEGATIVE); PROTEIN,URINE 2+ mg/dl (NEGATIVE); UGLUCOSE NEGATIVE (NEGATIVE); UROBILINOGEN,URINE 0.2 EU/dL (0.2)
[2022-11-04 02:29] LABS: PLATELET COUNT (AUTO) 35 K/uL (150-450)
[2022-11-04 02:30] LABS: BACTERIA,URINE Many /HPF (None Seen); SQUAMOUS EPITHELIAL CELL,UR Few /HPF (None Seen); WBC,URINE TOO NUMEROUS TO COUN /HPF (0-3)
[2022-11-04 02:31] LABS: CALCIUM, SERUM 10.6 mg/dL (8.5-10.1); CARBON DIOXIDE 28 mmol/L (21-32); CHLORIDE 108 mmol/L (98-107); CREATININE 0.8 mg/dL (0.6-1.3); GLUCOSE 114 mg/dL (74-106); POTASSIUM 4.6 mmol/L (3.5-5.1); SODIUM SERUM 142 mmol/L (136-145); UREA NITROGEN, BLOOD 36 mg/dL (7-18)
[2022-11-04 02:37] LABS: ALANINE AMINOTRANSFERASE 568 U/L (12-78); ALBUMIN 2.8 g/dL (3.4-5.0); ALKALINE PHOSPHATASE 127 U/L (46-116); ASPARTATE AMINOTRANSFERASE 159 U/L (15-37); BILIRUBIN,DIRECT 0.1 mg/dL (0.0-0.2); BILIRUBIN,TOTAL 0.2 mg/dL (0.2-1.0); LIPASE 111 U/L (73-393); TOTAL PROTEIN, SERUM 7.2 g/dL (6.4-8.2)
--- NOTE | 2022-11-04 02:40 | NUR ---
INITIATED WARMING MEASURES; ON BEAR HIRAM. WILL CONTINUE TO MONITOR VS.
--- NOTE | 2022-11-04 02:49 | NUR ---
COVID ANTIGEN SWAB COLLECTED AND SENT TO LAB
--- NOTE | 2022-11-04 03:16 | NUR ---
RECTAL TEMP 88.4 WITH BEAR HUGGER WARMER; NOTIFIED ELLIE ROBLES NP
[2022-11-04] MEDS ORDERED: PIPERACILLIN /TAZOBACTAM 3.375 G VIAL IV ONE (03:21)
[2022-11-04] MEDS ORDERED: ZOLPIDEM TARTRATE 5 MG TABLET PO PRN (03:30)
[2022-11-04] MEDS ORDERED: Z GUARD REMEDY 4 OZ OINT TP PRN (03:30)
[2022-11-04] MEDS ORDERED: CEFTRIAXONE 1 G in IV D5W 50 ML IV SCH (03:30)
[2022-11-04] MEDS ORDERED: MAGNESIUM HYDROXIDE 30 ML UDC PO PRN (03:30)
[2022-11-04] MEDS ORDERED: ONDANSETRON HCL/PF 4 MG/2 ML VIAL IVP PRN (03:30)
[2022-11-04] MEDS ORDERED: PIPERACILLIN /TAZOBACTAM 3.375 G in IV D5W 50 ML IV ONE (03:30)
[2022-11-04] MEDS ORDERED: MAG HYDROX/AL HYDROX/SIMETH 30 ML UDC PO PRN (03:30)
[2022-11-04] MEDS ORDERED: DEXTROSE 50%-WATER 50 ML DISP.SYRIN IV PRN (03:30)
[2022-11-04 03:37] LABS: BASOPHILS % (MANUAL) 0 % (0.0-2.0); EOSINOPHILS % (MANUAL) 4 % (0-4); LYMPHOCYTES % (MANUAL) 10 % (16-48); MONOCYTES % (MANUAL) 11 % (0-11.0); NEUTROPHILS % (MANUAL) 75 (42-76)
[2022-11-04] MEDS: IV NS 0.9% 1,000 ML IV PRN ×3 (04:05→20:36)
--- NOTE | 2022-11-04 04:06 | NUR ---
BP 81/45 [facility] ELLIE AWARE. INITIATED 2LNS BOLUS VERBAL ORDER FROM [facility]. WILL CONT TO MONITOR.
[2022-11-04] MEDS ORDERED: CEFTRIAXONE 1GM BAG (ER ONLY) 50 ML IV ONE (04:35)
[2022-11-04] MEDS ORDERED: NOREPINEPHRINE 4 MG/4 ML AMPUL IV ONE (04:44)
[2022-11-04] MEDS ORDERED: VANCOMYCIN 1.5 GM in IV D5W 500ml IV ONE (05:00)
[2022-11-04] MEDS: NOREPINEPHRINE 32 MG in IV NS 0.9% 218 ML IV PRN ×2 (05:00→09:42)
--- NOTE | 2022-11-04 05:00 | NUR ---
INITIATED LEVO DRIP 8MG IN NS 250 USED; NOT ENOUGH LEVO TO MIX MEDS FOR ORDER 32MG. INITIATED AT 0.1MCG/KG/MIN AT LAC #18G S/L BP 56/33 Addendum: 11/04/22 at 0517 by URMILA INITIATED LEVO DRIP 8MG IN NS 250 USED; NOT ENOUGH LEVO TO MIX MEDS FOR ORDER 32MG. INITIATED AT 0.1MCG/KG/MIN AT LAC #18G S/L BP 65/34
--- NOTE | 2022-11-04 05:13 | NUR ---
DIFFERENTIAL TESTER AT PT'S BEDSIDE
--- NOTE | 2022-11-04 05:19 | NUR ---
rm 253 after shift change
[2022-11-04] MEDS ORDERED: VANCOMYCIN 1 GM VIAL ONE (05:20)
[2022-11-04] MEDS ORDERED: VANCOMYCIN 500 MG VIAL ONE (05:20)
--- NOTE | 2022-11-04 07:26 | NUR ---
REPORT GIVEN TO HILARIA SUPERVISOR CARDING FOR ERICA
--- NOTE | 2022-11-04 07:43 | NUR ---
PT TRANSFERRING TO ICU 262 VIA ACLS PROTOCOL WITH LEVO DRIP AT 0.1MCG/KG/MIN. VSS. ALL BELONGINGS WITH PT.
--- NOTE | 2022-11-04 07:54 | NUR ---
PT MOVED TO ICU W/ ACLS TRANSPORT
--- NOTE | 2022-11-04 08:30 | NUR ---
RN note Patient was transferred from ER to ICU with 2RNs accompany. Patient is awake upon calling her name, [id number]. quality assurance monitor body showed SR HR 82/min. BP 144/83mmHg with levophed 8mg/250mL running through her left AC at 0.1mcg/kg/min. IV sites over right forearm and left AC are dry and patent. SpO2 98% RA, RR~18/min. No respiratory distress noted. Temp 96.9, continue bare hugger and keep monitoring of temperature trend. Inserted 16Fr ochoa, collected cloudy and pale yellow fluid. Noted maceration and redness over buttock, likely due to diarrhea. Also observed rash over the abdomen and generalized dryness. Tongue is dry. Bed is locked and placed in lowest position. All needs attended, will continue monitoring and care.
[2022-11-04] MEDS: BLOOD SUGAR DIAGNOSTIC 1 EACH STRIP IN SCH ×4 (08:42→23:51)
[2022-11-04] MEDS ORDERED: DIVA250T4 PO (09:07)
[2022-11-04] MEDS ORDERED: GLUC1KIT IM (09:07)
[2022-11-04] MEDS ORDERED: ACET-2605 PO (09:07)
[2022-11-04] MEDS ORDERED: GUAI100S11 PO (09:07)
[2022-11-04] MEDS ORDERED: MAG30ORA PO (09:07)
[2022-11-04] MEDS ORDERED: INSU100V7 SQ (09:07)
[2022-11-04] MEDS ORDERED: BENZ0.5T43 PO (09:07)
[2022-11-04] MEDS ORDERED: HYDR-4076 PO (09:07)
[2022-11-04] MEDS ORDERED: INSU100V3 SQ (09:07)
[2022-11-04] MEDS ORDERED: RISP0.2515 PO (09:07)
[2022-11-04] MEDS ORDERED: METF-440 PO (09:07)
[2022-11-04] MEDS ORDERED: DEXT38GE12 PO (09:07)
[2022-11-04] MEDS: Z GUARD REMEDY 4 OZ OINT TP SCH ×2 (09:34→21:07)
--- NOTE | 2022-11-04 10:06 | NUR ---
RN note Contacted pharmacist regarding the dose of zosyn scheduled at 0600. Informed Melara that ER colleague administered one dose at 0400. Melara said not to administer the dose for now as he had to reschedule the meds. Will follow.
--- NOTE | 2022-11-04 10:07 | NUR ---
RN note Tried to contact patient's niece and the number was not working. Also tried to call her friend, Josh to get updated information but in vain as well.
--- NOTE | 2022-11-04 10:13 | NUR ---
Patient received a booster dose of Moderna COVID-19 vaccine on 09/26/2022. Addendum: 11/04/22 at 1013 by JIMMIE BLANCHARD RN Amended: Links added.
[2022-11-04] MEDS: PIPERACILLIN /TAZOBACTAM 3.375 G in IV D5W 50 ML IV SCH ×4 (11:33→23:51)
--- NOTE | 2022-11-04 12:07 | NUR ---
WOUND CARE CONSULT: PT SLEEPING SOUNDLY AT THIS TIME. RECEIVED CONSULT FOR PERINEAL/BUTTOCK SKIN IRRITATION RASH SECONDARY TO DIARRHEA. REVIEWED CHART, NURSING DOCUMENTATION AND PHOTO WHICH INDICATE REDNESS/RASH TO BUTTOCKS AND PERINEUM, PRESENT ON ADMISSION. RECOMMENDATIONS MADE FOR SKIN PROTECTION AND DISCUSSED WITH NURSING STAFF. MD IN AGREEMENT WITH PLAN OF CARE.
--- NOTE | 2022-11-04 17:30 | NUR ---
Contacted patient's ex-boyfriend Josh. He said that all family members of patient are and he is the only one who could be contacted. Informed him about the need for PICC line for vasopressors. He consented.
[2022-11-04] MEDS: CLOTRIMAZOLE 1% 15 GM TUBE TP SCH (17:57)
--- NOTE | 2022-11-04 19:30 | NUR ---
JAI ESCOBAR,YONUG here in ICU made him aware patient needs PICC LINE insertion.Consent is signed. He said he can't do it.supervisor dairy sanitation Eneida made aware.
--- NOTE | 2022-11-04 20:00 | NUR ---
Received patient obtunded in no acute distress.DX;Sepsis possible UTI/Colitis.With O2 2LNC saturation 98%.Respiration even and unlabored.Coughing with moderate sputum suctioned prn. SR with Levophed gtt for BP supoort and will titrate accordingly.Kept NPO .FC to gravity.Turned and repositioned to comfort off loading pressure points.Continue monitoring.
[2022-11-05] VITALS (92 sets, daily range): BP systolic 82–148; BP diastolic 41–78
--- NOTE | 2022-11-05 02:00 | NUR ---
Patient resting in no acute distress.VS stable.Bed bath rendered.Complete linens changed. 1st Step mattress applied.Turned and repositioned.
[2022-11-05] MEDS: VANCOMYCIN 1 GM in IV D5W 250ml IV SCH (05:12)
[2022-11-05 05:16] LABS: BASOPHILS % (AUTO) 0.2 % (0.0-2.0); EOSINOPHILS % (AUTO) 0.6 % (0.0-6.0); HEMATOCRIT 33 % (33-45); HEMOGLOBIN 11.1 g/dL (11.5-14.8); LYMPHOCYTES # (AUTO) 0.7 K/uL (0.8-4.8); LYMPHOCYTES % (AUTO) 6.1 % (20.0-44.0); MEAN CORPUSCULAR HGB CONC 33 g/dl (31.0-36.0); MEAN CORPUSCULAR VOLUME 97 fL (82-100); MONOCYTES # (AUTO) 0.5 K/uL (0.1-1.30); MONOCYTES % (AUTO) 4.8 % (2.0-12.0); NEUTROPHILS # (AUTO) 10.1 K/uL (1.8-8.9); NEUTROPHILS % (AUTO) 88.3 % (43.0-81.0); RED BLOOD CELL COUNT(AUTO) 3.44 MIL/uL (4.0-5.2); WHITE BLOOD COUNT (AUTO) 11.4 K/uL (4.3-11.0)
[2022-11-05 05:20] LABS: PLATELET COUNT (AUTO) 33 K/uL (150-450)
[2022-11-05 05:29] LABS: ALBUMIN 2.2 g/dL (3.4-5.0); BILIRUBIN,TOTAL 0.5 mg/dL (0.2-1.0); CALCIUM, SERUM 8.8 mg/dL (8.5-10.1); CREATININE 0.9 mg/dL (0.6-1.3); MAGNESIUM 1.3 mg/dL (1.8-2.4); PHOSPHORUS 2.8 mg/dL (2.5-4.9); POTASSIUM 3.7 mmol/L (3.5-5.1); TOTAL PROTEIN, SERUM 6.1 g/dL (6.4-8.2)
[2022-11-05] MEDS: PIPERACILLIN /TAZOBACTAM 3.375 G in IV D5W 50 ML IV SCH ×4 (06:14→23:42)
--- NOTE | 2022-11-05 06:25 | NUR ---
Patient status unchanged.SR/SB.Off O2 well tolerated saturation 96%-97%.Levophed gtt titrated down to 0.02 mcg.Adequate urine output.No BM noted.Turned & repositioned Q 2hrs Patient still for PICC LINE insertion.Will endorse to day shift for ERICA.
--- NOTE | 2022-11-05 07:44 | NUR ---
RN NOTES PATIENT GETTING PICC LINE INSERTION AT THIS TIME.
[2022-11-05] MEDS: BLOOD SUGAR DIAGNOSTIC 1 EACH STRIP IN SCH ×4 (07:53→22:16)
[2022-11-05] MEDS: Z GUARD REMEDY 4 OZ OINT TP SCH ×2 (08:05→21:52)
[2022-11-05] MEDS: CLOTRIMAZOLE 1% 15 GM TUBE TP SCH ×2 (08:05→16:49)
[2022-11-05] MEDS: INSULIN REGULAR, HUMAN 100 UNIT/ML 3 ML VIAL SQ PRN ×3 (08:08→16:50)
--- NOTE | 2022-11-05 08:30 | NUR ---
RN NOTES SW TEACH WITH THE PATIENT AT THIS TIME, HOB ELEVATED 90 DEGREE, PATIENT NOT FOLLOWING COMMAND, HOLD FOOD IN THE MOUTH. PER SE TECH WILL TRY AGAIN TOMORROW. PATIENT PRONE TO ASPIRATION PRECAUTION. WILL FOLLOW UP.
[2022-11-05] MEDS: IV NS 0.9% 1,000 ML IV PRN ×2 (09:07→21:51)
[2022-11-05] MEDS: Magnesium 1GM/D5W 100ML PREMIX 100 ML IV SCH ×4 (10:52→14:22)
--- NOTE | 2022-11-05 12:00 | NUR ---
rn notes patient has no acute respiratory distress, on levophed 0.02 mcg/kg/min, bs145 mg/dl, due medication administered.
[2022-11-05] MEDS: NOREPINEPHRINE 32 MG in IV NS 0.9% 218 ML IV PRN (12:13)
[2022-11-05 16:14] LABS: BAND % (MANUAL) 1 % (0.0-5.0); EOSINOPHILS % (MANUAL) 1 % (0-4); LYMPHOCYTES % (MANUAL) 6 % (16-48); MONOCYTES % (MANUAL) 3 % (0-11.0); NEUTROPHILS % (MANUAL) 89 (42-76)
--- NOTE | 2022-11-05 18:30 | NUR ---
RN NOTES PM CARE DONE, DUE MEDICATION ADMINISTERED, PATIENT ON ROOM AIR O2-96%. LEVOPHED INFUSING 0.01MCG/KG/MIN, AND NS@100ML/HR ON PHILIP PICC LINE INTACT, URINE OUTPUT WAS 425 ML. ASSIST TURN AND REPOSTION. BS-178 MG/DL COVERAGE GIVE. ENDORSED ONCOMING NURSE ERICA.
--- NOTE | 2022-11-05 20:00 | NUR ---
Received patient open eyes spontaneously.Respiration even and unlabored on RA saturation 99%. Patient hypothermic 92.6 rectally.Kept warm with Latonia Hugger and blanket.Not on any distress. SB 40'S-50'S.Levophed gtt low dose for BP support infusing via PHILIP PICC LINE,site intact.Kept NPO with maintenance IVF infusing.FC to gravity.Turned and repositioned to comfort.Continue monitoring.
[2022-11-06] VITALS (82 sets, daily range): BP systolic 86–150; BP diastolic 30–88
[2022-11-06 04:16] LABS: BASOPHILS % (AUTO) 0.1 % (0.0-2.0); EOSINOPHILS % (AUTO) 1.6 % (0.0-6.0); HEMATOCRIT 30 % (33-45); LYMPHOCYTES % (AUTO) 10.6 % (20.0-44.0); MEAN CORPUSCULAR HGB CONC 34 g/dl (31.0-36.0); MEAN CORPUSCULAR VOLUME 97 fL (82-100); MONOCYTES # (AUTO) 0.4 K/uL (0.1-1.30); MONOCYTES % (AUTO) 4.3 % (2.0-12.0); NEUTROPHILS # (AUTO) 7.9 K/uL (1.8-8.9); NEUTROPHILS % (AUTO) 83.4 % (43.0-81.0); RED BLOOD CELL COUNT(AUTO) 3.07 MIL/uL (4.0-5.2); WHITE BLOOD COUNT (AUTO) 9.5 K/uL (4.3-11.0)
[2022-11-06 04:26] LABS: PLATELET COUNT (AUTO) 18 K/uL (150-450)
[2022-11-06 04:37] LABS: BILIRUBIN,TOTAL 0.5 mg/dL (0.2-1.0); CALCIUM, SERUM 8.6 mg/dL (8.5-10.1); CREATININE 0.7 mg/dL (0.6-1.3); MAGNESIUM 2.2 mg/dL (1.8-2.4); PHOSPHORUS 2.1 mg/dL (2.5-4.9); POTASSIUM 3.4 mmol/L (3.5-5.1); TOTAL PROTEIN, SERUM 5.8 g/dL (6.4-8.2)
[2022-11-06] MEDS: VANCOMYCIN 1 GM in IV D5W 250ml IV SCH (04:41)
[2022-11-06] MEDS: PIPERACILLIN /TAZOBACTAM 3.375 G in IV D5W 50 ML IV SCH ×4 (05:53→23:45)
--- NOTE | 2022-11-06 06:00 | NUR ---
Patient resting in no acute distress.Latest temp 95.2 rectally.Maintain on Latonia Hugger and blanket. SB 50'S.IVF infusing well.All due medications administered.AM Care done.No BM noted during the night.Patient AM labs resulted platelet Ct.18 called to YOUNG Schroeder orders received and carried out.To transfuse 1 unit Platelet.Will endorse to day shift for ERICA.
--- NOTE | 2022-11-06 08:00 | NUR ---
RN NOTES RECEIVED PATIENT AWAKE, A/O X1, FOLLOWS SIMPLE COMMANDS, BS-126 MG/DL, ASSIST PATIENT TO EAT SMALL SNACKS, PATENT TOLERATED WELL, AND WATER NO COUGHING. DUE MEDICATION ADMINISTERED. PATIENT ON LEVOPHED INFUSING LEVOPHED 0.02 MCG/KG/MIN, AND NS @100ML ON PHILIP PICC LINE INTACT, URINE OUTPUT 20ML WITH SEDIMENTS DRAINING VIA GRAVITY. ASSIST TURN AND REPOSTION Q 2 HR, PATIENT ON KRIS HUGGER.
[2022-11-06] MEDS: Z GUARD REMEDY 4 OZ OINT TP SCH ×2 (08:44→21:24)
[2022-11-06] MEDS: CLOTRIMAZOLE 1% 15 GM TUBE TP SCH ×2 (08:44→17:50)
[2022-11-06] MEDS: BLOOD SUGAR DIAGNOSTIC 1 EACH STRIP IN SCH ×4 (08:45→21:25)
--- NOTE | 2022-11-06 09:00 | NUR ---
rn notes patient pass swallow evaluation, per SE tech will order mechanical soft diet. will update tomorrow.
[2022-11-06] MEDS: IV NS 0.9% 1,000 ML IV PRN ×2 (10:57→22:10)
[2022-11-06] MEDS: POTASSIUM CL. PREMIX PERIPHER. 50 ML IV SCH ×2 (11:32→12:41)
[2022-11-06] MEDS: INSULIN REGULAR, HUMAN 100 UNIT/ML 3 ML VIAL SQ PRN ×2 (13:13→17:51)
--- NOTE | 2022-11-06 13:14 | NUR ---
rn notes patient on mechanical soft diet assist eating, bs-176 mg/dl coverage given, assist turn and reposition q 2 hr, resumed Levophed 0.01 mcg/kg/min at this time. will follow up.
[2022-11-06] MEDS ORDERED: NEUTRA PHOS 1 POWD.PACKET PO ONE (15:30)
[2022-11-06 15:56] LABS: EOSINOPHILS % (MANUAL) 1 % (0-4); LYMPHOCYTES % (MANUAL) 11 % (16-48); MONOCYTES % (MANUAL) 4 % (0-11.0); NEUTROPHILS % (MANUAL) 84 (42-76)
[2022-11-06] MEDS ORDERED: NEUTRA PHOS 1 POWD.PACKET NG ONE (18:00)
--- NOTE | 2022-11-06 18:30 | NUR ---
RN NOTES PATIENT TOLERATED DINNER WITH MAXIMUM ASSIST TOLERATED 20%, DUE MEDICATION ADMINISTERED, INFUSING NS @100ML/HR, URINE OUTPUT WAS 825 ML DARK RED WITH SEDIMENTS. ASSIST TURN AND REPOSTION Q 2 HR, KEEP HOB ELEVATED FOR ASPIRATION PRECAUTION. CALL LIGHT WITHIN TO REACH. PM CARE DONE, DUE MEDICATION ADMINISTERED. consent telephone form get from boyfriend name Josh co sign with co worker Nestor BECKER . notified [employer] , according [employer] red cross have shortage, and no blood available at this time. Night nurse aware of.
--- NOTE | 2022-11-06 20:00 | NUR ---
Received patient resting in no acute distress.Afebrile.SR Hemodynamically stable off pressor.RA saturation 92%.IVF infusing well via PHILIP PICC LINE and site intact.FC to gravity.Turned and repositioned to comfort off loading pressure points.Still waiting for Pletelet from [place].
[2022-11-07] VITALS (33 sets, daily range): BP systolic 99–154; BP diastolic 53–83
[2022-11-07 04:48] LABS: BASOPHILS % (AUTO) 0.2 % (0.0-2.0); EOSINOPHILS % (AUTO) 2.7 % (0.0-6.0); HEMATOCRIT 28 % (33-45); HEMOGLOBIN 9.4 g/dL (11.5-14.8); MEAN CORPUSCULAR HGB CONC 34 g/dl (31.0-36.0); MEAN CORPUSCULAR VOLUME 96 fL (82-100); MONOCYTES # (AUTO) 0.5 K/uL (0.1-1.30); MONOCYTES % (AUTO) 7.3 % (2.0-12.0); NEUTROPHILS # (AUTO) 4.8 K/uL (1.8-8.9); NEUTROPHILS % (AUTO) 74.8 % (43.0-81.0); WHITE BLOOD COUNT (AUTO) 6.4 K/uL (4.3-11.0)
[2022-11-07 05:27] LABS: PLATELET COUNT (AUTO) 19 K/uL (150-450)
[2022-11-07] MEDS: PIPERACILLIN /TAZOBACTAM 3.375 G in IV D5W 50 ML IV SCH (05:42)
--- NOTE | 2022-11-07 06:24 | NUR ---
Patient resting in no acute distress.VS stable.Hemodynamically stable.SR IVF infusing well.Poor oral intake.No BM noted.AM care done.Turned and repositioned.Latest Platelet 19 this morning. Per [employer] technician in Blood bank still waiting for 1 unit Platelet from [place].Will endorse to day shift for ERICA
--- NOTE | 2022-11-07 07:00 | NUR ---
Patient resting vs stable.1 unit Platelet started.Continue to monitor.
[2022-11-07] MEDS: BLOOD SUGAR DIAGNOSTIC 1 EACH STRIP IN SCH ×4 (07:39→21:36)
--- NOTE | 2022-11-07 07:51 | NUR ---
ICU OPENING RN NOTES RECEIVED PATIENT IN BED ALERT AND VERBALLY RESPONSIVE WHEN AWAKEN. ON ROOM AIR TOLERATING WELL, NO SOB NOTED, NOT IN DISTRESS. DENIES ANY PAIN. NOTED PLATELETS RUNNING ORDERED, PATIENT TOLERATING WELL. PHILIP PICC LINE NOTED PATENT AND INTACT. PATIENT STILL ON BEAR HUGGER, T. 96.3 RECTALLY. SAFETY MEASURES IN PLACED. CALL LIGHT WITHIN REACH. PLAN OF CARE CONTINUE.
[2022-11-07] MEDS: Z GUARD REMEDY 4 OZ OINT TP SCH ×2 (08:02→21:33)
[2022-11-07] MEDS: CLOTRIMAZOLE 1% 15 GM TUBE TP SCH ×2 (08:02→16:02)
[2022-11-07] MEDS: IV NS 0.9% 1,000 ML IV PRN (08:54)
--- NOTE | 2022-11-07 10:17 | NUR ---
DR. DURAND AT THE BEDSIDE, WITH ORDER TO D/C QUITA NOTED AND CARRIED OUT. PLAN OF CARE CONTINUE.
[2022-11-07] MEDS: CEFTRIAXONE 2 G in IV D5W 100 ML IV SCH (11:03)
[2022-11-07] MEDS: VANCOMYCIN 1.25 GM in IV D5W 250 ML IV SCH (11:42)
[2022-11-07 12:36] LABS: BAND % (MANUAL) 7 % (0.0-5.0); LYMPHOCYTES % (MANUAL) 13 % (16-48); MONOCYTES % (MANUAL) 5 % (0-11.0); NEUTROPHILS % (MANUAL) 75 (42-76)
[2022-11-07 15:30] LABS: D-DIMER 2.08 mg/L(FEU (0.17-0.50)
--- NOTE | 2022-11-07 17:00 | NUR ---
TRANSFERRED PATIENT TO [facility] UNIT ROOM 110. TELEMETRY STATUS.
--- NOTE | 2022-11-07 18:57 | NUR ---
TELE CLOSING RN NOTES PATIENT IN BED ALERT AND VERBALLY RESPONSIVE WHEN AWAKEN. ON ROOM AIR TOLERATING WELL, NO SOB NOTED, NOT IN DISTRESS. DENIES ANY PAIN.. PHILIP PICC LINE NOTED PATENT AND INTACT, FLUSHES WELL, WITH NORMAL SALINE @100ML/HR RUNNING. SAFETY MEASURES IN PLACED. CALL LIGHT WITHIN REACH. ON TELE MONITOR SR. WILL ENDORSE TO RN TEACHER NURSE FOR ERICA.
--- NOTE | 2022-11-07 19:00 | NUR ---
RN NOTE RECEIVED PATIENT IN BED, ON SEMI WALSH'S, CONFUSED, IN NO ACUTE DISTRESS, SATURATION AT 95% ON ROOM AIR, SB ON THE MONITOR, HR IS 56. PHILIP PICC LINE IN PLACE, ALL HUBS PATENT AND FLUSHING WELL WITH NS INFUSING AT 100 ML/HR. ALAMO CATHETER DRAINING TO A CLEAR, YELLOW OUTPUT. SAFETY MEASURES IN PLACE, BED IS LOCKED AND AT LOWEST POSITION, BED ALARM IS ON, HOB ELEVATED, CALL LIGHT WITHIN REACH OF PATIENT. WILL CONTINUE TO MONITOR AND REASSESS.
[2022-11-07] MEDS: INSULIN REGULAR, HUMAN 100 UNIT/ML 3 ML VIAL SQ PRN (21:39)
[2022-11-08] VITALS: BP 112/71
[2022-11-08 04:00] VITALS: BP 104/58
[2022-11-08] MEDS: IV NS 0.9% 1,000 ML IV PRN ×2 (04:05→15:51)
--- NOTE | 2022-11-08 07:30 | NUR ---
RN OPEN TELE NOTE: AWAKE AND RESPONSIVE TO NAME. REORIENTED TO TIME, PLACE AND SITUATION. SINUS LINUS 49 ON PHOTOSTAT OPERATOR HELPER. PHILIP PICC LINE WITH CLEAN DRESSING, PATENT. RIGHT FOREARM IV PATENT. ALAMO CATHETER IN PLACE WITH YELLOW URINE. HOB ELEVATED AT SEMI-FOWLERS POSITION. BILATERAL HALF SIDE RAILS UP X2. BED LOCKED, IN LOW POSITION. CALL LIGHT IN REACH. DENIES PAIN OR DISCOMFORT.
[2022-11-08 07:37] LABS: BASOPHILS % (AUTO) 0.2 % (0.0-2.0); HEMATOCRIT 27 % (33-45); HEMOGLOBIN 9.2 g/dL (11.5-14.8); LYMPHOCYTES # (AUTO) 0.9 K/uL (0.8-4.8); LYMPHOCYTES % (AUTO) 17.6 % (20.0-44.0); MEAN CORPUSCULAR HGB CONC 34 g/dl (31.0-36.0); MEAN CORPUSCULAR VOLUME 96 fL (82-100); MONOCYTES # (AUTO) 0.3 K/uL (0.1-1.30); NEUTROPHILS # (AUTO) 3.4 K/uL (1.8-8.9); NEUTROPHILS % (AUTO) 70.2 % (43.0-81.0); RED BLOOD CELL COUNT(AUTO) 2.82 MIL/uL (4.0-5.2); WHITE BLOOD COUNT (AUTO) 4.9 K/uL (4.3-11.0)
[2022-11-08 07:42] LABS: PLATELET COUNT (AUTO) 46 K/uL (150-450)
[2022-11-08 07:51] LABS: D-DIMER 2.86 mg/L(FEU (0.17-0.50)
[2022-11-08 08:00] VITALS: BP 113/55
[2022-11-08 08:02] LABS: C-REACTIVE PROTEIN 3.7 mg/dL (0.0-0.9)
[2022-11-08 08:03] LABS: CALCIUM, SERUM 8.7 mg/dL (8.5-10.1); CREATININE 0.7 mg/dL (0.6-1.3); POTASSIUM 3.4 mmol/L (3.5-5.1)
[2022-11-08 08:16] LABS: THYROID STIMULATING HORMONE 4.565 uIU/mL (0.358-3.74)
[2022-11-08] MEDS: BLOOD SUGAR DIAGNOSTIC 1 EACH STRIP IN SCH ×4 (08:25→21:28)
[2022-11-08] MEDS ORDERED: POTASSIUM CHLORIDE 20 MEQ POWDER PACKET PO ONE (10:00)
[2022-11-08] MEDS: CEFTRIAXONE 2 G in IV D5W 100 ML IV SCH (10:16)
[2022-11-08] MEDS: CLOTRIMAZOLE 1% 15 GM TUBE TP SCH ×2 (10:26→16:56)
[2022-11-08] MEDS: Z GUARD REMEDY 4 OZ OINT TP SCH ×2 (10:26→21:31)
[2022-11-08] MEDS: VANCOMYCIN 1.25 GM in IV D5W 250 ML IV SCH (10:58)
[2022-11-08 12:00] VITALS: BP 109/56
--- NOTE | 2022-11-08 12:00 | NUR ---
Held insulin 2 units. Refusing lunch. Blood sugar 139.
[2022-11-08] MEDS: INSULIN REGULAR, HUMAN 100 UNIT/ML 3 ML VIAL SQ PRN ×3 (13:02→21:30)
--- NOTE | 2022-11-08 13:14 | NUR ---
Dr. Jorge Moscoso informed of resident ate 15% breakfast and refused lunch insulin held. Note to cough when eating, than refused. Now ate an icecream, when thicker consistency does not cough.
[2022-11-08 16:00] VITALS: BP 116/68
[2022-11-08 16:34] LABS: EOSINOPHILS % (MANUAL) 4 % (0-4); LYMPHOCYTES % (MANUAL) 16 % (16-48); MONOCYTES % (MANUAL) 6 % (0-11.0); NEUTROPHILS % (MANUAL) 74 (42-76)
--- NOTE | 2022-11-08 18:50 | NUR ---
RN CLOSING TELE NOTE: AWAKE AND RESPONSIVE TO NAME. REORIENTED TO TIME, PLACE AND SITUATION. SINUS LINUS 49 ON UNDERWRITING TECHNICIAN. PHILIP PICC LINE WITH CLEAN DRESSING, PATENT. RIGHT FOREARM IV PATENT. ALAMO CATHETER IN PLACE WITH YELLOW URINE. KEPT CLEAN AND DRY. TURNED AND REPOSITIONED. TOPICAL TREATMENT DONE ORDERED. HOB ELEVATED AT SEMI-FOWLERS POSITION. BILATERAL HALF SIDE RAILS UP X2. BED LOCKED, IN LOW POSITION. CALL LIGHT IN REACH. DENIES PAIN OR DISCOMFORT.
[2022-11-08 20:00] VITALS: BP 113/55
--- NOTE | 2022-11-08 22:31 | NUR ---
ACCU CHECK Blood glucose 159mg/dl, Given insulin per parameters co-signed by EUGENIO Ellison.
[2022-11-09] VITALS: BP 126/57
[2022-11-09] MEDS: IV NS 0.9% 1,000 ML IV PRN ×2 (01:53→18:28)
[2022-11-09 04:00] VITALS: BP 124/94
--- NOTE | 2022-11-09 04:20 | NUR ---
BLOOD CX RESULTED Lab reported Blood cx. resulted Gram Positive cocci, collected on 11/05/22. Patient on Abx Vancomycin and Rocephin. Will f/u in am if further orders needed.
[2022-11-09 06:10] LABS: BASOPHILS % (AUTO) 0.2 % (0.0-2.0); EOSINOPHILS % (AUTO) 4.9 % (0.0-6.0); HEMATOCRIT 29 % (33-45); HEMOGLOBIN 9.6 g/dL (11.5-14.8); LYMPHOCYTES # (AUTO) 0.8 K/uL (0.8-4.8); LYMPHOCYTES % (AUTO) 13.2 % (20.0-44.0); MEAN CORPUSCULAR HGB CONC 34 g/dl (31.0-36.0); MEAN CORPUSCULAR VOLUME 97 fL (82-100); MONOCYTES # (AUTO) 0.4 K/uL (0.1-1.30); MONOCYTES % (AUTO) 6.9 % (2.0-12.0); NEUTROPHILS # (AUTO) 4.7 K/uL (1.8-8.9); NEUTROPHILS % (AUTO) 74.8 % (43.0-81.0); PLATELET COUNT (AUTO) 58 K/uL (150-450); RED BLOOD CELL COUNT(AUTO) 2.94 MIL/uL (4.0-5.2); WHITE BLOOD COUNT (AUTO) 6.4 K/uL (4.3-11.0)
--- NOTE | 2022-11-09 06:19 | NUR ---
END OF SHIFT REPORT Patient in bed, confused. Sinus tori HR 50's in the Tele monitor. Oxygen sat miguel 90's in RA. PHILIP PICC line intact, IVF infusing. Patient has poor appetite. Warner cath to drainage, output 500ml yellow clear. No BM during the shift. Turned and repositioned q2H. Plan for continue abx. Fall precaution maintained. Will endorse to oncoming RN.
[2022-11-09 06:22] LABS: CALCIUM, SERUM 8.8 mg/dL (8.5-10.1); CREATININE 0.7 mg/dL (0.6-1.3); POTASSIUM 3.5 mmol/L (3.5-5.1)
[2022-11-09 07:06] LABS: IMMUNOGLOBULIN A, SERUM 361 mg/dL (64-422); IMMUNOGLOBULIN G, SERUM 819 mg/dL (586-1602); IMMUNOGLOBULIN M, SERUM 51 mg/dL (26-217)
[2022-11-09] MEDS: BLOOD SUGAR DIAGNOSTIC 1 EACH STRIP IN SCH ×4 (07:48→22:07)
[2022-11-09 08:00] VITALS: BP 109/64
[2022-11-09] MEDS: CEFTRIAXONE 2 G in IV D5W 100 ML IV SCH (10:08)
[2022-11-09] MEDS: CLOTRIMAZOLE 1% 15 GM TUBE TP SCH ×2 (10:13→17:15)
[2022-11-09] MEDS: Z GUARD REMEDY 4 OZ OINT TP SCH ×2 (10:13→21:58)
[2022-11-09] MEDS: VANCOMYCIN 1.25 GM in IV D5W 250 ML IV SCH (11:02)
[2022-11-09] MEDS ORDERED: CT SWABBABLE VALVE TRANS SET 1 EA INFUS.SET MC ONE (11:57)
[2022-11-09] MEDS ORDERED: IOHEXOL-300 100 ML VIAL IV ONE (11:57)
[2022-11-09] MEDS ORDERED: IV NS 0.9% 250 ML IV ONE (11:57)
[2022-11-09 12:00] VITALS: BP 125/59
--- NOTE | 2022-11-09 12:00 | NUR ---
rn note accucheck bs 142, insulin coverage not given due to pt being npo for ct scan with contrast
--- NOTE | 2022-11-09 13:44 | NUR ---
RN OPENING NOTE RECEIVED PT AWAKE IN BED. ALERT AND ORIENTED X1 TO NAME ONLY. oPT HAS PERIODS OF CONFUSION. PT ON TELE MONITOR SINUS LINUS [address] AV BLOCK. PHILIP PICC LINE WITH CLEAN DRESSING,IV INTACT AND PATENT. ALAMO CATHETER IN PLACE DRAINING YELLOW COLOR URINE TO GRAVITY. SEMI-FOWLERS POSITION. SIDE RAILS UP X2. BED LOCKED, ALL SAFETY MEASURES IN PLACE. CALL LIGHT WITHIN REACH. BED LOCKED IN LOW POSITION. BED ALARM ON. SIDE RAILS UP X2. Addendum: 11/09/22 at 1345 by RAUL AUSTIN RN this opening note relates to this morning 11/09/22 at 0750
[2022-11-09 16:00] VITALS: BP 120/60
[2022-11-09] MEDS: INSULIN REGULAR, HUMAN 100 UNIT/ML 3 ML VIAL SQ PRN ×2 (18:03→22:22)
--- NOTE | 2022-11-09 19:43 | NUR ---
RN CLOSING NOTE PT AWAKE IN BED. ALERT AND ORIENTED X1 TO NAME ONLY. PT HAS PERIODS OF CONFUSION. PT ON TELE MONITOR SINUS LINUS. PHILIP PICC LINE WITH CLEAN DRESSING,IV INTACT AND PATENT. ALAMO CATHETER IN PLACE DRAINING YELLOW COLOR URINE TO GRAVITY. SEMI-FOWLERS POSITION. SIDE RAILS UP X2. BED LOCKED, ALL SAFETY MEASURES IN PLACE. CALL LIGHT WITHIN REACH. BED LOCKED IN LOW POSITION. BED ALARM ON. SIDE RAILS UP X2. ENDORSED TO FOOD STYLIST RN FOR [facility]
[2022-11-09 20:00] VITALS: BP 158/91
[2022-11-10] VITALS: BP 100/54
[2022-11-10 04:00] VITALS: BP 102/65
--- NOTE | 2022-11-10 06:00 | NUR ---
Client on bed confused to time and place. IV flds of NS maintained @ 100ml /hr to right upper arm Picc line. Site to picc line unremarkable. blood sugar this morning 101 mg /dl.No insulin per med order. Am care given . tolerated well.Remedy guard applied to vaginal area. Client had large Bm and voided spontaneously without difficulty. No sob, nor cardiac distress noted at this time. Will continue to monitor for safety.Made comfortable.
[2022-11-10 07:59] LABS: BASOPHILS % (AUTO) 0.2 % (0.0-2.0); EOSINOPHILS % (AUTO) 5.3 % (0.0-6.0); HEMATOCRIT 26 % (33-45); HEMOGLOBIN 8.8 g/dL (11.5-14.8); LYMPHOCYTES % (AUTO) 15.6 % (20.0-44.0); MEAN CORPUSCULAR HGB CONC 34 g/dl (31.0-36.0); MEAN CORPUSCULAR VOLUME 98 fL (82-100); MONOCYTES # (AUTO) 0.5 K/uL (0.1-1.30); MONOCYTES % (AUTO) 7.6 % (2.0-12.0); NEUTROPHILS # (AUTO) 4.5 K/uL (1.8-8.9); NEUTROPHILS % (AUTO) 71.3 % (43.0-81.0); PLATELET COUNT (AUTO) 81 K/uL (150-450); RED BLOOD CELL COUNT(AUTO) 2.68 MIL/uL (4.0-5.2); WHITE BLOOD COUNT (AUTO) 6.3 K/uL (4.3-11.0)
[2022-11-10 08:00] VITALS: BP 133/48
[2022-11-10 08:03] LABS: BILIRUBIN,TOTAL 0.3 mg/dL (0.2-1.0); CALCIUM, SERUM 8.7 mg/dL (8.5-10.1); CREATININE 0.7 mg/dL (0.6-1.3); MAGNESIUM 1.9 mg/dL (1.8-2.4); PHOSPHORUS 3.2 mg/dL (2.5-4.9); POTASSIUM 3.4 mmol/L (3.5-5.1); TOTAL PROTEIN, SERUM 5.7 g/dL (6.4-8.2)
[2022-11-10 08:06] LABS: *SPE A/G RATIO 0.8 (0.7-1.7); *SPE ALPHA-1-GLOBULIN 0.3 g/dL (0.0-0.4); *SPE ALPHA-2-GLOBULIN 0.9 g/dL (0.4-1.0); *SPE M-SPIKE Not Observed g/dL (Not Observed)
[2022-11-10] MEDS: BLOOD SUGAR DIAGNOSTIC 1 EACH STRIP IN SCH ×4 (08:10→22:05)
[2022-11-10] MEDS: INSULIN REGULAR, HUMAN 100 UNIT/ML 3 ML VIAL SQ PRN ×4 (08:30→22:05)
[2022-11-10] MEDS: CLOTRIMAZOLE 1% 15 GM TUBE TP SCH ×2 (09:00→17:47)
[2022-11-10] MEDS: Z GUARD REMEDY 4 OZ OINT TP SCH ×2 (09:00→21:06)
[2022-11-10 09:07] LABS: *ANA ANTI-CENTROMERE B AB <0.2 AI (0.0-0.9); *ANA ANTI-DNA(DS) AB, QN <1 IU/mL (0-9); *ANA ANTI-JO-1 <0.2 AI (0.0-0.9); *ANA ANTICHROMATIN ANTIBODY <0.2 AI (0.0-0.9); *ANA RNP ANTIBODIES 0.2 AI (0.0-0.9); *ANA SJOGREN'S ANTI-SS-A <0.2 AI (0.0-0.9); *ANA SJOGREN'S ANTI-SS-B <0.2 AI (0.0-0.9); *ANAANTI-SCLERODERMA-70 AB <0.2 AI (0.0-0.9); *ANASMITH AB <0.2 AI (0.0-0.9)
[2022-11-10] MEDS: IV NS 0.9% 1,000 ML IV PRN ×2 (10:14→23:46)
[2022-11-10] MEDS: VANCOMYCIN 1.25 GM in IV D5W 250 ML IV SCH (11:40)
[2022-11-10 12:00] VITALS: BP 106/44
[2022-11-10] MEDS ORDERED: POTASSIUM CHLORIDE 20 MEQ POWDER PACKET PO ONE (12:30)
[2022-11-10 16:00] VITALS: BP 119/50
[2022-11-10 16:40] LABS: THYROID STIMULATING HORMONE 5.3 uIU/mL (0.358-3.74)
--- NOTE | 2022-11-10 19:39 | NUR ---
RN CLOSING NOTE PT AWAKE IN BED. ALERT AND ORIENTED X1 TO NAME ONLY. PT HAS PERIODS OF CONFUSION. PT ON TELE MONITOR SINUS LINUS. PHILIP PICC LINE WITH CLEAN DRESSING,IV INTACT AND PATENT. ALAMO CATHETER IN PLACE DRAINING YELLOW COLOR URINE TO GRAVITY. SEMI-FOWLERS POSITION. SIDE RAILS UP X2. BED LOCKED, ALL SAFETY MEASURES IN PLACE. CALL LIGHT WITHIN REACH. BED LOCKED IN LOW POSITION. BED ALARM ON. SIDE RAILS UP X2. ENDORSED TO ELEVATOR ATTENDANT RN FOR CONTINUITY OF CARE
--- NOTE | 2022-11-10 19:40 | NUR ---
RN opening notes Pt is laying in bed comfortably watching TV. Pt is alert and orientedX1, and confused. On room air. NO SOB. No S/S of distress noted. PHILIP PICC is clean, intact and infusing well NS@ 100ml/hr. Tele monitor showed S. tori. Warner cath is inplaced and draining yellow urine. Safety precautions is maintained. bed at low position, brakes locked, side rails upX3, hob elevated and call light is within reach. will continue to monitor.
[2022-11-10 20:00] VITALS: BP 138/71
--- NOTE | 2022-11-10 22:35 | NUR ---
RN notes Pt is trying to removes lines and also trying to get out the bed. Pt is alert and orientedX1, confused and disoriented and not followiing direction. Informed and notify Dr. Bright. ordered bilateral soft wrists restraint. Ordered carry out.
[2022-11-11] VITALS: BP 119/63
[2022-11-11 04:00] VITALS: BP 123/72
[2022-11-11 05:56] LABS: BASOPHILS % (AUTO) 0.3 % (0.0-2.0); EOSINOPHILS % (AUTO) 4.8 % (0.0-6.0); HEMATOCRIT 26 % (33-45); HEMOGLOBIN 8.6 g/dL (11.5-14.8); LYMPHOCYTES # (AUTO) 0.9 K/uL (0.8-4.8); LYMPHOCYTES % (AUTO) 14.1 % (20.0-44.0); MEAN CORPUSCULAR HGB CONC 34 g/dl (31.0-36.0); MEAN CORPUSCULAR VOLUME 96 fL (82-100); MONOCYTES # (AUTO) 0.5 K/uL (0.1-1.30); MONOCYTES % (AUTO) 7.7 % (2.0-12.0); NEUTROPHILS # (AUTO) 4.6 K/uL (1.8-8.9); NEUTROPHILS % (AUTO) 73.1 % (43.0-81.0); PLATELET COUNT (AUTO) 104 K/uL (150-450); RED BLOOD CELL COUNT(AUTO) 2.64 MIL/uL (4.0-5.2); WHITE BLOOD COUNT (AUTO) 6.4 K/uL (4.3-11.0)
[2022-11-11 06:08] LABS: ALBUMIN 2.1 g/dL (3.4-5.0); BILIRUBIN,TOTAL 0.3 mg/dL (0.2-1.0); CALCIUM, SERUM 8.4 mg/dL (8.5-10.1); CREATININE 0.6 mg/dL (0.6-1.3); MAGNESIUM 1.7 mg/dL (1.8-2.4); PHOSPHORUS 2.9 mg/dL (2.5-4.9); POTASSIUM 3.2 mmol/L (3.5-5.1); TOTAL PROTEIN, SERUM 5.7 g/dL (6.4-8.2)
[2022-11-11] MEDS: BLOOD SUGAR DIAGNOSTIC 1 EACH STRIP IN SCH ×4 (06:38→21:56)
--- NOTE | 2022-11-11 06:42 | NUR ---
RN closing notes Pt is resting in bed comfortably. Pt is alert and orientedX1, with episode of confusion. On 2 L NC. NO SOB. No S/S of distress noted. PHILIP PICC is clean, intact and infusing well NS@ 100ml/hr. Routine meds were given as ordered. Tele monitor showed S. tori. Warner cath is inplaced and draining yellow urine. NPO status. Kept Pt clean, dry and comfortable. Safety precautions is maintained. bed at low position, brakes locked, side rails upX3, hob elevated and call light is within reach. Will endorse to am nurse for ERICA.
[2022-11-11 08:54] VITALS: BP 95/57
--- NOTE | 2022-11-11 09:30 | NUR ---
Dr Patel made aware, requested order for marina alonso, awiting response. Addendum: 11/11/22 at 1010 by REGISTRY [facility] IN[facility] RN1 RN Amended: Links added.
[2022-11-11] MEDS: Magnesium 1GM/D5W 100ML PREMIX 100 ML IV SCH ×2 (09:35→11:01)
[2022-11-11] MEDS: POTASSIUM CL. PREMIX PERIPHER. 50 ML IV SCH ×4 (09:35→17:05)
[2022-11-11] MEDS: Z GUARD REMEDY 4 OZ OINT TP SCH ×2 (09:50→21:13)
[2022-11-11] MEDS: CLOTRIMAZOLE 1% 15 GM TUBE TP SCH ×2 (09:50→17:09)
--- NOTE | 2022-11-11 10:13 | NUR ---
mag and K infusing, pt in stable condition at present. marina alonso placed. Addendum: 11/11/22 at 1014 by REGISTRY [facility] IN[facility]IENT RN1 RN Amended: Links added.
--- NOTE | 2022-11-11 11:00 | NUR ---
DR. CONTRERAS NOTIFIED PT POSITVE BLOOD CULTURE AWAITS MIDLINE THEN DC PICC,NURSING SUP NOTIFIED.
--- NOTE | 2022-11-11 11:44 | NUR ---
picc line removed ,intact and send tip for cx,midline in.
[2022-11-11 12:00] VITALS: BP 116/58
--- NOTE | 2022-11-11 12:00 | NUR ---
Temp axi 97.0, marina alonso placed in standby mode. Addendum: 11/11/22 at 1431 by REGISTRY [facility] INPATIENT RN1 RN Amended: Links added.
[2022-11-11] MEDS: VANCOMYCIN 1.25 GM in IV D5W 250 ML IV SCH (12:04)
[2022-11-11 16:00] VITALS: BP 111/57
--- NOTE | 2022-11-11 17:01 | NUR ---
patient off restraint but pulling lines,soft wrist restraint initiated per md. will continue to monitor.
[2022-11-11] MEDS ORDERED: IOHEXOL-300 100 ML VIAL IV ONE ×2 (18:50→23:03)
[2022-11-11] MEDS ORDERED: IV NS 0.9% 250 ML IV ONE ×2 (18:50→23:03)
--- NOTE | 2022-11-11 19:30 | NUR ---
SQL DEVELOPER OPENING NOTES - RECEIVED PATIENT SLEEPING IN BED, EASY TO AROUSE. A/O X1. BREATHING EVEN AND NON-LABORED. ON O2 AT 2LPM VIA NASAL CANULA. NOT IN APPARENT DISTRESS. NO C/O PAIN OR DISCOMFORT AT THIS TIME. ON TELE MONITOR READING SINUS BRADYCARDIA AT 56 BPM. HAS LEFT UPPER ARM MIDLINE #18G WITH NS RUNNING AT 100 ML/HR. NO S/S OF INFILTRATION NOTED. HAS INDWELLING ALAMO CATHETER DRAINING CLEAR YELLOW URINE TO BAG BY GRAVITY. BILATERAL SOFT WRIST RESTRAINTS IN PLACE. KRIS HUGGER ON STANDBY. SAFETY PRECAUTIONS OBSERVED: BED LOCKED AND IN LOW POSITION, SIDE RAILS UP X3, CALL LIGHT WITHIN REACH. WILL CONTINUE PLAN OF CARE.
[2022-11-11 20:00] VITALS: BP 108/51
[2022-11-11] MEDS: IV NS 0.9% 1,000 ML IV PRN (21:04)
--- NOTE | 2022-11-11 21:30 | NUR ---
NEEDS MED RECON, HOSPITALIST LINDA OCAMPO NOTIFIED AND AWARE.
[2022-11-11] MEDS: INSULIN REGULAR, HUMAN 100 UNIT/ML 3 ML VIAL SQ PRN (21:56)
--- NOTE | 2022-11-11 22:54 | NUR ---
NOTIFIED HOSPITALIST LINDA OCAMPO ON POSITIVE BLOOD CULTURE RESULT WITH NO NEW ORDER.
[2022-11-11] MEDS ORDERED: CT SWABBABLE VALVE TRANS SET 1 EA INFUS.SET MC ONE (23:03)
[2022-11-12] VITALS: BP 119/59
--- NOTE | 2022-11-12 00:06 | NUR ---
CT SCAN OF THE ABDOMEN DONE. TRANSFERRED TO AND FROM THE RADIOLOGY DEPT. VIA ACLS PROTOCOL.
[2022-11-12 04:00] VITALS: BP 121/53
[2022-11-12 05:54] LABS: BASOPHILS % (AUTO) 0.3 % (0.0-2.0); HEMATOCRIT 22 % (33-45); HEMOGLOBIN 7.3 g/dL (11.5-14.8); LYMPHOCYTES # (AUTO) 0.7 K/uL (0.8-4.8); LYMPHOCYTES % (AUTO) 13.7 % (20.0-44.0); MEAN CORPUSCULAR HGB CONC 34 g/dl (31.0-36.0); MEAN CORPUSCULAR VOLUME 98 fL (82-100); MONOCYTES # (AUTO) 0.4 K/uL (0.1-1.30); MONOCYTES % (AUTO) 7.1 % (2.0-12.0); NEUTROPHILS # (AUTO) 3.8 K/uL (1.8-8.9); NEUTROPHILS % (AUTO) 73.9 % (43.0-81.0); PLATELET COUNT (AUTO) 155 K/uL (150-450); RED BLOOD CELL COUNT(AUTO) 2.22 MIL/uL (4.0-5.2); WHITE BLOOD COUNT (AUTO) 5.2 K/uL (4.3-11.0)
[2022-11-12 06:16] LABS: CALCIUM, SERUM 6.9 mg/dL (8.5-10.1); CARBON DIOXIDE 21 mmol/L (21-32); CHLORIDE 114 mmol/L (98-107); CREATININE 0.5 mg/dL (0.6-1.3); GLUCOSE 108 mg/dL (74-106); MAGNESIUM 1.7 mg/dL (1.8-2.4); PHOSPHORUS 2.4 mg/dL (2.5-4.9); SODIUM SERUM 144 mmol/L (136-145); UREA NITROGEN, BLOOD 5 mg/dL (7-18)
[2022-11-12] MEDS: BLOOD SUGAR DIAGNOSTIC 1 EACH STRIP IN SCH ×2 (06:32→12:12)
[2022-11-12] MEDS: INSULIN REGULAR, HUMAN 100 UNIT/ML 3 ML VIAL SQ PRN ×2 (06:32→13:02)
--- NOTE | 2022-11-12 06:44 | NUR ---
RETAIL PRODUCT ADVISOR CLOSING NOTES - PATIENT ASLEEP, NO ACUTE DISTRESS THROUGHOUT THE NIGHT. CONFUSED BUT HAS CLEAR SPEECH. TOLERATING O2 AT 2LPM WELL, NO SOB OR NOTED. TEMP 96.3 VIA AXILLA, KRIS HUGGER USED DIRECTED. ON TELE MONITOR READING SINUS BRADYCARDIA AT 35-50'S BPM. LEFT UPPER ARM MIDLINE #18G INTACT, PATENT AND FLUSHING. CLEAR YELLOW URINE NOTED. BILATERAL ARMS CHECKED FOR COLOR AND CIRCULATION. ALL DUE MEDS GIVEN AND NEEDS ATTENDED. SAFETY PRECAUTIONS MAINTAINED. WILL ENDORSE TO NEXT SHIFT FOR ERICA.
[2022-11-12 07:15] LABS: POTASSIUM 2.7 mmol/L (3.5-5.1)
--- NOTE | 2022-11-12 07:20 | NUR ---
GEAR MACHINE OPERATOR OPENING NOTES Received pt asleep in bed. No signs of pain or discomfort at this time. Pt is currently on 2L NC and tolerating it well. IV access on CÉSAR midline patent and intact. HOB elevated to pts comfort. Siderails up at all times x2. Call light within reach. Will continue to monitor.
[2022-11-12 08:00] VITALS: BP 109/71
[2022-11-12 08:22] LABS: ALANINE AMINOTRANSFERASE 105 U/L (12-78); ALBUMIN 1.7 g/dL (3.4-5.0); ALKALINE PHOSPHATASE 81 U/L (46-116); ASPARTATE AMINOTRANSFERASE 17 U/L (15-37); BILIRUBIN,TOTAL 0.3 mg/dL (0.2-1.0); TOTAL PROTEIN, SERUM 4.6 g/dL (6.4-8.2)
[2022-11-12] MEDS: POTASSIUM CL. PREMIX PERIPHER. 50 ML IV SCH ×4 (09:27→11:48)
[2022-11-12] MEDS: Z GUARD REMEDY 4 OZ OINT TP SCH (09:43)
[2022-11-12] MEDS: CLOTRIMAZOLE 1% 15 GM TUBE TP SCH (09:43)
[2022-11-12] MEDS: Magnesium 1GM/D5W 100ML PREMIX 100 ML IV SCH ×2 (10:33→11:08)
[2022-11-12] MEDS: VANCOMYCIN 1.25 GM in IV D5W 250 ML IV SCH (11:50)
[2022-11-12 12:00] VITALS: BP 119/58
[2022-11-12] MEDS ORDERED: PROSOURCE / PROSTAT (PYXIS) 30 ML UDC PO SCH (13:00)
--- NOTE | 2022-11-12 13:06 | NUR ---
AIRCRAFT REFUELER NOTES Pt scheduled for discharge to [facility]. Gave report to Jack. Left a message for Keiko COLLIER regarding the d/c.
[2022-11-12] MEDS ORDERED: K PHOS NEUTRAL 250 MG TABLET PO ONE (16:30)
--- NOTE | 2022-11-12 16:45 | NUR ---
PRODUCT MARKETING EXECUTIVE NOTES Pt picked up by ambulance. Transferred from bed to [facility] safely. IV kept in place d/t pt going to resume IV ATB at the facility. Paperwork given to EMT.
== END 2022-11-12 16:45 | DRG 871 ==
LOC: ER 00:40 → MEDSG1 03:46 → ICU 05:21 → TELE1 11-07 17:38
PROVIDERS: ADMIT Nurse Practitioner Acute Care
PROC: 02HV33Z Insertion of Infusion Device into Superior Vena Cava, Percutaneous Approach (ICD-10-PCS; 2022-11-05)
PROC: B548ZZA Ultrasonography of Superior Vena Cava, Guidance (ICD-10-PCS; 2022-11-05)
PROC: 30233R1 Transfusion of Nonautologous Platelets into Peripheral Vein, Percutaneous Approach (ICD-10-PCS; principal; 2022-11-06)
PROC: 05HC33Z Insertion of Infusion Device into Left Basilic Vein, Percutaneous Approach (ICD-10-PCS; 2022-11-11)
DX: A41.9 Sepsis, unspecified organism (principal); G93.41 Metabolic encephalopathy; R65.21 Severe sepsis with septic shock; J18.9 Pneumonia, unspecified organism; N39.0 Urinary tract infection, site not specified; F03.93 Unspecified dementia, unspecified severity, with mood disturbance; A09 Infectious gastroenteritis and colitis, unspecified; E44.0 Moderate protein-calorie malnutrition; J90 Pleural effusion, not elsewhere classified; J98.11 Atelectasis; Z20.822 Contact with and (suspected) exposure to COVID-19; I10 Essential (primary) hypertension; E11.9 Type 2 diabetes mellitus without complications; Z79.899 Other long term (current) drug therapy; Z79.4 Long term (current) use of insulin; B96.89 Other specified bacterial agents as the cause of diseases classified elsewhere; D69.6 Thrombocytopenia, unspecified; R74.01 Elevation of levels of liver transaminase levels; E78.5 Hyperlipidemia, unspecified; F32.A Depression, unspecified; E88.09 Other disorders of plasma-protein metabolism, not elsewhere classified; F29 Unspecified psychosis not due to a substance or known physiological condition; R68.0 Hypothermia, not associated with low environmental temperature; B96.20 Unspecified Escherichia coli [E. coli] as the cause of diseases classified elsewhere; E87.6 Hypokalemia; D64.9 Anemia, unspecified; K76.9 Liver disease, unspecified; E83.42 Hypomagnesemia
CPT/HCPCS: 36415; 71045-TC; 71260-TC; 74160-TC; 80048-TC; 80053-TC; 80076-TC; 80202-TC; 81001; 82105; 82140-TC; 82378; 82607-TC; 82728-TC; 82784; 82962-TC; 83540-TC; 83690-TC; 83735-TC; 84100-TC; 84155; 84165; 84439-TC; 84443-TC; 84484-TC; 85025-TC; 85045-TC; 85396; 86140-TC; 86225; 86235; 86301; 86334; 86431-TC; 86704; 86803; 86850-TC; 87040-TC; 87081-TC; 87086-TC; 87340; 87806; 92526; 92611-TC; 93307-TC; C9803; G0378; J0696; J1815; J2543; J3370; J3475; J3480; J7030; J7042; J7050; J7060; P9034; Q9967

== ENCOUNTER 2022-12-21 14:04 | Inpatient (IN) | payer MEDICARE, OTHER ==
[~2022-12-21] VITALS: Ht 160 cm; Wt 50.3 kg
--- NOTE | 2022-12-21 00:12 | NUR ---
Admission Notes Pt arrived via [facility] @1954. Patient is alert but nonverbal and makes noises. On RA and tolerating well. No SOB noted. No s/sx of respiratory distress noted. Tele monitor detects SR with rate of 91. IV access in LAC #18G running NS @ 75 mL/hr. Safety precautions in place: bed in lowest, locked postion, siderails upx2, and brakes on. Table and call light within reach. All needs met at this time. Addendum: 12/22/22 at 0021 by YANN HERRERA RN date should 12/22/22
[~2022-12-21 14:04] MED LIST changes: +ACET-2605 PO; -BISA10SU11 RC; +CLOT15CR27 TP; +CLOT15CR35 TP; +CRAN3875 PO; +DEXT38GE12 PO; +DIPH25CA83 PO; +DIVA250T4 PO; +GLUC1KIT IM; -INSU100V27 SQ; +INSU100V3 SQ; +MEROPENEM 500 MG in IV NS 0.9% 50 ML IV SCH; +MINE454O3 TP; +MIRT-121 PO; +NUT.237L45 PO; +PANT40TA49 PO; +Prosource PO
--- NOTE | 2022-12-21 14:30 | NUR ---
BIBA FOR COFFEE GROUND EMESIS. CONFUSED, UNINTELLIGIBLE PER BASELINE. TOLERATING WELL ON ROOM AIR.
[2022-12-21] MEDS ORDERED: PANTOPRAZOLE 40 MG VIAL IV ONE (15:00)
[2022-12-21] MEDS ORDERED: ONDANSETRON HCL/PF - ER 4 MG/2 ML VIAL IV ONE (15:00)
[2022-12-21] MEDS ORDERED: IV NS 0.9% 1,000 ML BAG IV ONE (15:00)
--- NOTE | 2022-12-21 15:20 | NUR ---
X-RAY AT BEDSIDE
[2022-12-21] MEDS ORDERED: ONDANSETRON HCL/PF 4 MG/2 ML VIAL ONE (15:24)
[2022-12-21] MEDS ORDERED: PANTOPRAZOLE 40 MG VIAL ONE (15:24)
[2022-12-21] MEDS ORDERED: ONDA4TAB5 PO (15:30)
[2022-12-21] MEDS ORDERED: CLON0.1T PO (15:30)
[2022-12-21] MEDS ORDERED: INSU100V7 SQ (15:30)
[2022-12-21] MEDS ORDERED: MAG30ORA PO (15:30)
[2022-12-21] MEDS ORDERED: APIX2.5T PO (15:30)
[2022-12-21] MEDS ORDERED: FAMO20TA8 PO (15:30)
[2022-12-21 15:34] LABS: BASOPHILS % (AUTO) 0.2 % (0.0-2.0); EOSINOPHILS % (AUTO) 0.1 % (0.0-6.0); HEMATOCRIT 36 % (33-45); HEMOGLOBIN 11.7 g/dL (11.5-14.8); LYMPHOCYTES # (AUTO) 0.8 K/uL (0.8-4.8); MEAN CORPUSCULAR HGB CONC 33 g/dl (31.0-36.0); MEAN CORPUSCULAR VOLUME 94 fL (82-100); MONOCYTES # (AUTO) 0.7 K/uL (0.1-1.30); MONOCYTES % (AUTO) 3.4 % (2.0-12.0); NEUTROPHILS # (AUTO) 19.5 K/uL (1.8-8.9); NEUTROPHILS % (AUTO) 92.3 % (43.0-81.0); PLATELET COUNT (AUTO) 566 K/uL (150-450); RED BLOOD CELL COUNT(AUTO) 3.77 MIL/uL (4.0-5.2); WHITE BLOOD COUNT (AUTO) 21.1 K/uL (4.3-11.0)
[2022-12-21 15:49] LABS: CALCIUM, SERUM 10.2 mg/dL (8.5-10.1); CREATININE 1.2 mg/dL (0.6-1.3); POTASSIUM 4.2 mmol/L (3.5-5.1)
[2022-12-21 15:59] LABS: ALBUMIN 2.5 g/dL (3.4-5.0); BILIRUBIN,DIRECT 0.1 mg/dL (0.0-0.2); BILIRUBIN,TOTAL 0.3 mg/dL (0.2-1.0); TOTAL PROTEIN, SERUM 7.9 g/dL (6.4-8.2)
[2022-12-21] MEDS ORDERED: CEFTRIAXONE 1GM BAG (ER ONLY) 1 GM/50 ML PIGGYBACK IV ONE (16:00)
--- NOTE | 2022-12-21 16:16 | NUR ---
URINE SAMPLE OBTAINED
--- NOTE | 2022-12-21 16:16 | NUR ---
COVID SWAB AND UA COLLECTED AND SENT TO THE LAB.
--- NOTE | 2022-12-21 16:30 | NUR ---
MOVE SHEET SUBMITTED.
[2022-12-21 16:51] LABS: BILIRUBIN,URINE NEGATIVE (NEGATIVE); COLOR,URINE YELLOW (YELLOW); LEUKOCYTE ESTERASE ,URINE 2+ (NEGATIVE); NITRITE, URINE NEGATIVE (NEGATIVE); PROTEIN,URINE 1+ mg/dl (NEGATIVE); UGLUCOSE 3+ mg/dL (NEGATIVE); UROBILINOGEN,URINE 0.2 EU/dL (0.2)
[2022-12-21 16:55] LABS: LYMPHOCYTES % (MANUAL) 7 % (16-48); MONOCYTES % (MANUAL) 3 % (0-11.0); NEUTROPHILS % (MANUAL) 90 (42-76)
[2022-12-21 16:58] LABS: BACTERIA,URINE 3+ /HPF (None Seen); SQUAMOUS EPITHELIAL CELL,UR 0-2 /HPF (None Seen); WBC,URINE 21-50 /HPF (0-3)
[2022-12-21] MEDS ORDERED: ACETAMINOPHEN 325 MG TABLET PO PRN (17:30)
[2022-12-21] MEDS ORDERED: ZOLPIDEM TARTRATE 5 MG TABLET PO PRN (17:30)
[2022-12-21] MEDS ORDERED: DEXTROSE 50%-WATER 50 ML DISP.SYRIN IV PRN (17:30)
[2022-12-21] MEDS ORDERED: NA PHOS,M-B/NA PHOS,DI-BA 1 EA ENEMA RC PRN (17:30)
[2022-12-21] MEDS ORDERED: MAG HYDROX/AL HYDROX/SIMETH 30 ML UDC PO PRN (17:30)
[2022-12-21] MEDS ORDERED: MAGNESIUM HYDROXIDE 30 ML UDC PO PRN (17:30)
[2022-12-21] MEDS ORDERED: ONDANSETRON HCL/PF 4 MG/2 ML VIAL IVP PRN (17:30)
[2022-12-21] MEDS ORDERED: Z GUARD REMEDY 4 OZ OINT TP PRN (17:30)
[2022-12-21] MEDS ORDERED: CLONIDINE HCL 0.1 MG TABLET PO PRN (17:30)
--- NOTE | 2022-12-21 17:43 | NUR ---
GOT BED 304-2 ADMITTING INFORMED.
[2022-12-21] MEDS: BLOOD SUGAR DIAGNOSTIC 1 EACH STRIP IN SCH ×2 (17:56→22:15)
--- NOTE | 2022-12-21 18:19 | NUR ---
Report given to EUGENIO Johnson
--- NOTE | 2022-12-21 19:50 | NUR ---
PT IS TRANSPORTEDD TO UNIT ON GURNEY WITH EMT AND RN AT BEDSIDE W/ ACLS PROTOCOL. NAD NOTED DURING TRANSPORT.
[2022-12-21 20:00] VITALS: BP 114/80
[2022-12-21] MEDS ORDERED: MEROPENEM 500 MG VIAL IV ONE (21:05)
[2022-12-21] MEDS: IV NS 0.9% 1,000 ML IV PRN (21:21)
[2022-12-21] MEDS: MEROPENEM 500 MG in IV NS 0.9% 50 ML IV SCH (21:21)
[2022-12-21] MEDS: PANTOPRAZOLE 40 MG VIAL IV SCH (21:27)
[2022-12-21] MEDS: INSULIN REGULAR, HUMAN 100 UNIT/ML 3 ML VIAL SQ PRN (22:09)
[2022-12-22] VITALS (7 sets, daily range): BP systolic 133–154; BP diastolic 50–90
[2022-12-22] MEDS ORDERED: MEROPENEM 500 MG VIAL IV ONE (05:21)
[2022-12-22] MEDS: MEROPENEM 500 MG in IV NS 0.9% 50 ML IV SCH ×3 (05:34→20:55)
[2022-12-22 05:57] LABS: BASOPHILS # (AUTO) 0.1 K/uL (0.0-0.2); BASOPHILS % (AUTO) 0.3 % (0.0-2.0); EOSINOPHILS % (AUTO) 0.3 % (0.0-6.0); HEMATOCRIT 31 % (33-45); HEMOGLOBIN 10.1 g/dL (11.5-14.8); LYMPHOCYTES # (AUTO) 0.9 K/uL (0.8-4.8); LYMPHOCYTES % (AUTO) 4.9 % (20.0-44.0); MEAN CORPUSCULAR HGB CONC 33 g/dl (31.0-36.0); MEAN CORPUSCULAR VOLUME 95 fL (82-100); MONOCYTES # (AUTO) 0.7 K/uL (0.1-1.30); MONOCYTES % (AUTO) 3.8 % (2.0-12.0); NEUTROPHILS # (AUTO) 17.1 K/uL (1.8-8.9); NEUTROPHILS % (AUTO) 90.7 % (43.0-81.0); PLATELET COUNT (AUTO) 458 K/uL (150-450); RED BLOOD CELL COUNT(AUTO) 3.23 MIL/uL (4.0-5.2); WHITE BLOOD COUNT (AUTO) 18.9 K/uL (4.3-11.0)
[2022-12-22 06:23] LABS: CALCIUM, SERUM 9.2 mg/dL (8.5-10.1); PHOSPHORUS 3.4 mg/dL (2.5-4.9)
[2022-12-22 06:27] LABS: POTASSIUM 3.9 mmol/L (3.5-5.1)
[2022-12-22] MEDS: BLOOD SUGAR DIAGNOSTIC 1 EACH STRIP IN SCH ×4 (06:33→21:54)
[2022-12-22] MEDS: INSULIN REGULAR, HUMAN 100 UNIT/ML 3 ML VIAL SQ PRN ×3 (06:33→16:42)
--- NOTE | 2022-12-22 06:46 | NUR ---
RN Closing Notes Pt in bed, asleep, awakens to verbal and tactile stimuli. Patient is alert but nonverbal and makes noises. On RA and tolerating well. No SOB noted. No s/sx of respiratory distress noted. Tele monitor detects SR with rate of 91. IV access in LAC #18G running NS @ 75 mL/hr. All orders carried out. All needs met. Pt kept clean and dry. Safety precautions in place: bed in lowest, locked postion, siderails upx2, and brakes on. Table and call light within reach. Will endorse to oncoming shift for ERICA.
--- NOTE | 2022-12-22 07:00 | NUR ---
RN OPENING NOTE- PT IN BED AWAKE, CONFUSED, ORIENTED TO PERSON ONLY, BASICALLY NON VERBAL. NO EMESIS NOTED, LAB VALUES APPEAR UNREMARKABLE, HGB, HCT WNL. NO EVIDENCE OF BLEEDING OR PAIN. ABD- BS POS THROUGHOUT ON AUSCULTATION. NO GUARDING OR RIGIDITY ON PALPATION. SIDE RAILS UP, BED LOCKED, CALL LIGHT IN REACH , MONITOR / ASSIST
[2022-12-22] MEDS: PANTOPRAZOLE 40 MG VIAL IV SCH ×2 (08:44→20:56)
[2022-12-22] MEDS: GLUCERNA SHAKE 237 ML CAN PO SCH ×2 (12:00→16:17)
[2022-12-22] MEDS: IV NS 0.9% 1,000 ML IV PRN (14:03)
--- NOTE | 2022-12-22 18:31 | NUR ---
RN CLOSING NOTE- UNCHANGED, PT IN BED AWAKE, CONFUSED, ORIENTED TO PERSON ONLY, BASICALLY NON VERBAL. NO EMESIS NOTED, LAB VALUES APPEAR UNREMARKABLE, HGB, HCT WNL. NO EVIDENCE OF BLEEDING OR PAIN. ABD- BS POS THROUGHOUT ON AUSCULTATION. NO GUARDING OR RIGIDITY ON PALPATION. SWALLOW EVAL INCOMPLETE X TWO. WILL RECHECK TOMORROW. SIDE RAILS UP, BED LOCKED, CALL LIGHT IN REACH , MONITOR / ASSIST
--- NOTE | 2022-12-22 19:30 | NUR ---
MARINA PORTER NOTES RECEIVED LAYING ON BED AWAKE,NON VERBAL,BREATHING REGULAR,NOT IN ANY FORM DISTRESS.O2 SAT 98% ON ROOM AIR.WITH IVF NS AT 75ML/HR RATE INFUSING ON LEFT AC SALINE LOCK VIA IV PUMP.NOTED REDNESS ON SACRAL AREA AND BREAST FOLD BILATERALLY.CLEANSE WITH SOAP AND WATER,DRIED AND APPLIED REMEDY AND MEPILEX ON SACRUM.FALL RISK,BED ALARM TRIGGERED.BED ON LOWEST POSITION AND LOCKED.WILL CONTINUE TO MONITOR STATUS.
[2022-12-22 20:13] LABS: HEMOGLOBIN 10.1 g/dL (11.5-14.8)
--- NOTE | 2022-12-22 21:45 | NUR ---
MS RN NOTES ACCU-CHECK BLOOD SUGAR CHECK 147MG/DL,2UNITS HUMULIN R HELD,NPO STATUS.
[2022-12-23] VITALS: BP 144/84
[2022-12-23 04:00] VITALS: BP 134/69
[2022-12-23] MEDS: MEROPENEM 500 MG in IV NS 0.9% 50 ML IV SCH ×3 (04:50→21:11)
[2022-12-23 05:57] LABS: BASOPHILS % (AUTO) 0.3 % (0.0-2.0); EOSINOPHILS % (AUTO) 1.7 % (0.0-6.0); HEMATOCRIT 29 % (33-45); HEMOGLOBIN 9.6 g/dL (11.5-14.8); LYMPHOCYTES # (AUTO) 1.2 K/uL (0.8-4.8); LYMPHOCYTES % (AUTO) 9.7 % (20.0-44.0); MEAN CORPUSCULAR HGB CONC 33 g/dl (31.0-36.0); MEAN CORPUSCULAR VOLUME 97 fL (82-100); MONOCYTES # (AUTO) 0.6 K/uL (0.1-1.30); MONOCYTES % (AUTO) 4.7 % (2.0-12.0); NEUTROPHILS # (AUTO) 10.4 K/uL (1.8-8.9); NEUTROPHILS % (AUTO) 83.6 % (43.0-81.0); PLATELET COUNT (AUTO) 377 K/uL (150-450); RED BLOOD CELL COUNT(AUTO) 3.05 MIL/uL (4.0-5.2); WHITE BLOOD COUNT (AUTO) 12.4 K/uL (4.3-11.0)
--- NOTE | 2022-12-23 06:00 | NUR ---
ACTING PROFESSOR NOTES ACCU-CHECK BLOOD SUGAR CHECK 161MG/DL,COVERED WITH HUMULIN R 3 UNITS PER MILD SLIDING SCALE.IVF INFUSING WELL ON LEFT ARM
[2022-12-23 06:06] LABS: CALCIUM, SERUM 8.9 mg/dL (8.5-10.1); CREATININE 0.9 mg/dL (0.6-1.3); POTASSIUM 3.4 mmol/L (3.5-5.1)
[2022-12-23] MEDS: BLOOD SUGAR DIAGNOSTIC 1 EACH STRIP IN SCH ×4 (06:23→22:50)
[2022-12-23] MEDS: INSULIN REGULAR, HUMAN 100 UNIT/ML 3 ML VIAL SQ PRN ×4 (06:27→23:27)
--- NOTE | 2022-12-23 06:56 | NUR ---
LANDSCAPE CONTRACTOR NOTES NO SIGNIFICANT CHANGE IN STATUS.NO ACTIVE BLEEDING NOTED,NO BOWEL MOVEMENT.NO VOMITING NOTED.CALM AND QUIET ON BED.KEPT NPO TILL SEEN BY DR MARTIN AND EVALUATE BY SPEECH THERAPIST.IN NO ACUTE DISTRESS.CALL LIGHT IN REACH,NEEDS ATTENDED.
--- NOTE | 2022-12-23 07:40 | NUR ---
ENVIRONMENTAL ENGINEERING PROFESSOR NOTES PATIENT SLEEPING ON BED, NON VERBAL,BREATHING REGULAR,NOT IN ANY FORM DISTRESS.O2 SAT 97% ON ROOM AIR.WITH IVF NS AT 75ML/HR RATE INFUSING ON LEFT AC SALINE LOCK VIA IV PUMP.ON TELE MONITOR READING SR 76.FALL RISK,BED ALARM TRIGGERED.BED ON LOWEST POSITION AND LOCKED.WILL CONTINUE TO MONITOR STATUS.
[2022-12-23 08:00] VITALS: BP 142/74
[2022-12-23] MEDS: GLUCERNA SHAKE 237 ML CAN PO SCH ×3 (08:00→17:16)
[2022-12-23] MEDS: PANTOPRAZOLE 40 MG VIAL IV SCH ×2 (08:42→21:11)
[2022-12-23] MEDS: IV NS 0.9% 1,000 ML IV PRN (08:42)
--- NOTE | 2022-12-23 10:44 | NUR ---
WOUND CARE CONSULT: PT PRESENTS WITH RASH TO BREASTFOLDS, PERINEUM AND BUTTOCKS, PRESENT ON ADMISSION. RECOMMENDATIONS MADE FOR SKIN PROTECTION AND SKIN CARE. DISCUSSED WITH NURSING STAFF. MD IN AGREEMENT WITH PLAN OF CARE. Addendum: 12/23/22 at 1046 by LILY ROJAS WNDNU Amended: Links added.
[2022-12-23] MEDS ORDERED: POTASSIUM CHLORIDE 20 MEQ TAB.PRT.SR PO SCH (11:00)
[2022-12-23 12:00] VITALS: BP 115/62
--- NOTE | 2022-12-23 12:55 | NUR ---
RN NOTES PATIENT LEFT THE UNIT FOR EGD PROCEDURE ACCOMPANIED BY OR STAFF. A/OX1, NO SIGNS OF CARDIAC OR RESPIRATORY DISTRESS NOTED. VITALS TAKEN,STABLE AND RECORDED.
--- NOTE | 2022-12-23 16:00 | NUR ---
RN NOTES PATIENT CAME BACK FROM SURGERY C/O S/P EGD, VITALS TAKEN ARE FOLLOWS BP 122/67 RR-20 AK-71 SPO2 98 T-97. NO C/O PAIN/BLEEDING/DISCOMFORT NOTED. WILL MONITOR.
--- NOTE | 2022-12-23 18:28 | NUR ---
TREE WRAPPER CLOSING NOTES PATIENT AWAKE ON BED AWAKE A/OX1-2, ON ROOM AIR, BREATHING REGULAR,NOT IN ANY FORM OF DISTRESS.O2 SAT 98%. WITH IVF NS AT 75ML/HR RATE INFUSING ON LEFT AC SALINE LOCK VIA IV PUMP. DISCONTINUED TELE MONITORING ORDERED. EGD DONE IN THE AFTERNOON, NO COMPLICATIONS NOTED. CARE RENDERED, KEPT PATIENT COMFORTABLE. CLEANSED SACRAL AREA AND BREAST FOLD ORDERED. ANTI REFLUX MEASURES APPLIED. SWALLOWING EVAL DONE. FALL RISK,BED ALARM TRIGGERED.BED ON LOWEST POSITION AND LOCKED.ENDORSED TO NEXT NURSE.
--- NOTE | 2022-12-23 19:30 | NUR ---
MS RN OPENING NOTES RECEIVED PATIENT AWAKE IN BED. A/O X 1-2. ON ROOM AIR, BREATHING EVEN AND UNLABORED, NO SIGNS OF DISTRESS OR SOB NOTED. IV ACCESS ON LAC RUNNING NS @ 75ML/HR, INFUSING WELL. ANTI REFLUX MEASURES NOTED. SAFETY MEASURES IN PLACE WITH BED IN LOWEST LOCKED POSITION. SIDE RAILS UP X 2. BED ALARM ON. WILL CONTINUE TO MONITOR AND REASSESS FOR ANY CHANGES AND WILL CARRY OUT ACTIVE MD ORDERS.
[2022-12-23 20:01] VITALS: BP 133/69
[2022-12-24] MEDS: IV NS 0.9% 1,000 ML IV PRN ×2 (03:55→18:18)
[2022-12-24] MEDS: MEROPENEM 500 MG in IV NS 0.9% 50 ML IV SCH ×2 (04:00→17:16)
[2022-12-24] MEDS: INSULIN REGULAR, HUMAN 100 UNIT/ML 3 ML VIAL SQ PRN ×4 (06:50→22:43)
[2022-12-24] MEDS: BLOOD SUGAR DIAGNOSTIC 1 EACH STRIP IN SCH ×4 (06:50→22:44)
[2022-12-24 07:00] VITALS: BP 154/113
[2022-12-24 07:12] LABS: CALCIUM, SERUM 8.5 mg/dL (8.5-10.1); CREATININE 0.6 mg/dL (0.6-1.3); PHOSPHORUS 2.1 mg/dL (2.5-4.9); POTASSIUM 3.5 mmol/L (3.5-5.1)
[2022-12-24 07:16] LABS: BASOPHILS # (AUTO) 0.1 K/uL (0.0-0.2); BASOPHILS % (AUTO) 0.6 % (0.0-2.0); EOSINOPHILS % (AUTO) 2.4 % (0.0-6.0); HEMATOCRIT 29 % (33-45); HEMOGLOBIN 9.3 g/dL (11.5-14.8); LYMPHOCYTES # (AUTO) 1.6 K/uL (0.8-4.8); LYMPHOCYTES % (AUTO) 16.3 % (20.0-44.0); MEAN CORPUSCULAR HGB CONC 32 g/dl (31.0-36.0); MEAN CORPUSCULAR VOLUME 97 fL (82-100); MONOCYTES # (AUTO) 0.5 K/uL (0.1-1.30); MONOCYTES % (AUTO) 5.5 % (2.0-12.0); NEUTROPHILS # (AUTO) 7.2 K/uL (1.8-8.9); NEUTROPHILS % (AUTO) 75.2 % (43.0-81.0); PLATELET COUNT (AUTO) 318 K/uL (150-450); RED BLOOD CELL COUNT(AUTO) 2.98 MIL/uL (4.0-5.2); WHITE BLOOD COUNT (AUTO) 9.6 K/uL (4.3-11.0)
--- NOTE | 2022-12-24 07:26 | NUR ---
MS RN OPENING NOTE RECEIVED PT ASLEEP IN BED, EASILY AROUSED. PT IS A/O X1, NON-VERBAL. REORIENTED PT NEEDED. PT ON ROOM AIR, TOLERATING WELL. NO SOB NOTED. NOT IN ANY SIGN OF RESPIRATORY DISTRESS. IV ACCESS ON LAC INTACT AND PATENT WITH NS INFUSING AT 75ML/HR. SAFETY MEASURES IN PLACE: BED IN LOWEST AND LOCKED POSITION, SIDE RAILS UPX2, BED ALARM ON, AND CALL LIGHT WITHIN REACH. WILL CONTINUE PT WITH PLAN OF CARE.
--- NOTE | 2022-12-24 07:27 | NUR ---
MS RN CLOSING NOTES PATIENT IN BED ASLEEP. EASILY BE AWAKEN BY VERBAL STIMULI. A/O X 1-2. ON ROOM AIR, BREATHING EVEN AND UNLABORED, NO SIGNS OF DISTRESS OR SOB NOTED. IV ACCESS ON LAC RUNNING NS @ 75ML/HR, INFUSING WELL. ANTI REFLUX MEASURES NOTED. SAFETY MEASURES MAINTAINED WITH BED IN LOWEST LOCKED POSITION. SIDE RAILS UP X 2. BED ALARM ON. CALL LIGHT WITHIN EASY REACH. WILL ENDORSE TO THE NEXT SHIFT.
[2022-12-24] MEDS: PANTOPRAZOLE 40 MG VIAL IV SCH (08:29)
[2022-12-24] MEDS: GLUCERNA SHAKE 237 ML CAN PO SCH ×3 (08:29→17:20)
[2022-12-24] MEDS: CLOTRIMAZOLE 1% 15 GM TUBE TP SCH ×2 (08:29→17:20)
[2022-12-24] MEDS: PANTOPRAZOLE 40 MG/PACK PACK PO SCH ×2 (08:39→21:52)
--- NOTE | 2022-12-24 08:40 | NUR ---
RN NOTE NEW ORDER OF PROTONIX PO SCHEDULED AT 0900 NOT ADMINISTERED. PROTONIX IV WAS ALREADY GIVEN AT 0829 PRIOR TO THE NEW ORDER CHANGE.
[2022-12-24] MEDS ORDERED: NEUTRA PHOS 1 POWD.PACKET PO ONE (11:00)
[2022-12-24 16:00] VITALS: BP 112/67
[2022-12-24] MEDS: MEGESTROL ACETATE SUSP 400 MG/10 ML UDC PO SCH (17:19)
--- NOTE | 2022-12-24 19:23 | NUR ---
MS RN CLOSING NOTE PT ASLEEP IN BED, EASILY AROUSED. PT IS A/O X1, NON-VERBAL. REORIENTED PT NEEDED. PT ON ROOM AIR, TOLERATING WELL. NO SOB NOTED. NOT IN ANY SIGN OF RESPIRATORY DISTRESS. IV ACCESS ON RFA G#20 INTACT AND PATENT WITH NS INFUSING AT 75ML/HR. ALL NEEDS ATTENDED. KEPT CLEAN AND COMFORTABLE AT ALL TIMES. TURNED AND REPOSITIONED Q2HRS AND NEEDED. SAFETY MEASURES IN PLACE: BED IN LOWEST AND LOCKED POSITION, SIDE RAILS UPX2, BED ALARM ON, AND CALL LIGHT WITHIN REACH. ENDORSED TO INKER NURSE FOR ERICA.
[2022-12-24 20:00] VITALS: BP 121/60
--- NOTE | 2022-12-24 20:27 | NUR ---
MS RN OPENING NOTES: RECEIVED PATIENT AWAKE IN BED, BED IN LOW POSITION, CALL LIGHTS WITHIN REACH, NO COMPLAIN OF PAIN AND DISCOMFORT AT THIS TIME, ON ROOM AIR SATURATING WELL, NO SOB WAS OBSERVED, PATIENT IS A/O X1 WITH IV LINE AT RFA#20 WITH ONGOING 0.9NSS@75ML/HR INFUSING WELL, PATIENT KEPT CLEAN AND DRY ALL NEEDS MET WILL CONTINUE TO MONITOR.
--- NOTE | 2022-12-24 22:44 | NUR ---
RN NOTES: BLOOD SUGAR 140 - 2 UNITS GIVEN PER SLIDING SCALE,
[2022-12-25] MEDS: MEROPENEM 500 MG in IV NS 0.9% 50 ML IV SCH (05:08)
[2022-12-25 06:06] LABS: BASOPHILS % (AUTO) 0.4 % (0.0-2.0); HEMATOCRIT 31 % (33-45); HEMOGLOBIN 9.9 g/dL (11.5-14.8); LYMPHOCYTES # (AUTO) 1.8 K/uL (0.8-4.8); LYMPHOCYTES % (AUTO) 21.1 % (20.0-44.0); MEAN CORPUSCULAR HGB CONC 32 g/dl (31.0-36.0); MEAN CORPUSCULAR VOLUME 95 fL (82-100); MONOCYTES # (AUTO) 0.5 K/uL (0.1-1.30); MONOCYTES % (AUTO) 6.4 % (2.0-12.0); NEUTROPHILS # (AUTO) 5.9 K/uL (1.8-8.9); NEUTROPHILS % (AUTO) 69.1 % (43.0-81.0); PLATELET COUNT (AUTO) 337 K/uL (150-450); RED BLOOD CELL COUNT(AUTO) 3.21 MIL/uL (4.0-5.2); WHITE BLOOD COUNT (AUTO) 8.6 K/uL (4.3-11.0)
[2022-12-25 06:34] LABS: CALCIUM, SERUM 8.6 mg/dL (8.5-10.1); CARBON DIOXIDE 26 mmol/L (21-32); CHLORIDE 112 mmol/L (98-107); CREATININE 0.6 mg/dL (0.6-1.3); GLUCOSE 147 mg/dL (74-106); MAGNESIUM 1.8 mg/dL (1.8-2.4); PHOSPHORUS 2.7 mg/dL (2.5-4.9); POTASSIUM 3.5 mmol/L (3.5-5.1); SODIUM SERUM 146 mmol/L (136-145); UREA NITROGEN, BLOOD 10 mg/dL (7-18)
--- NOTE | 2022-12-25 06:45 | NUR ---
RN NOTES: BLOOD SUGAR-112/ NO INSULIN GIVEN PER SLIDING SCALE
[2022-12-25] MEDS: BLOOD SUGAR DIAGNOSTIC 1 EACH STRIP IN SCH ×2 (06:46→11:30)
--- NOTE | 2022-12-25 06:46 | NUR ---
RN NOTES: RECEIVED PATIENT SLEEP IN BED COMFORTABLY, AROUSABLE TO VERBAL STIMULI, BED IN LOW POSITION, CALL LIGHTS WITHIN REACH NO COMPLAIN OF PAIN AND DISCOMFORT AT THIS TIME, ON ROOM AIR SATURATING WELL, PATIENT KEPT CLEAN AND DRY ALL NEEDS MET ENDORSE TO INCOMING SHIFT.
[2022-12-25 07:00] VITALS: BP 138/72
--- NOTE | 2022-12-25 07:05 | NUR ---
MS RN OPENING NOTES RECEIVED PATIENT AWAKE IN BED, A/O X1 WITH IV LINE AT RFA#20 WITH ONGOING 0.9NSS@75ML/HR INFUSING WELL, NO COMPLAIN OF PAIN AND DISCOMFORT AT THIS TIME, ON ROOM AIR SATURATING WELL, NO SOB WAS OBSERVED, BED IN LOW POSITION, CALL LIGHTS WITHIN REACH, WILL CONTINUE TO MONITOR THE PATIENT
[2022-12-25] MEDS: MEGESTROL ACETATE SUSP 400 MG/10 ML UDC PO SCH (08:14)
[2022-12-25] MEDS: GLUCERNA SHAKE 237 ML CAN PO SCH ×2 (08:14→11:48)
[2022-12-25] MEDS: PANTOPRAZOLE 40 MG/PACK PACK PO SCH (08:14)
[2022-12-25] MEDS: CLOTRIMAZOLE 1% 15 GM TUBE TP SCH (08:15)
[2022-12-25] MEDS: INSULIN REGULAR, HUMAN 100 UNIT/ML 3 ML VIAL SQ PRN (11:36)
[2022-12-25] MEDS ORDERED: NUT.237L45 PO (12:28)
[2022-12-25] MEDS ORDERED: MEGE400O5 PO (12:28)
[2022-12-25] MEDS ORDERED: PANT40SU2 PO (12:28)
--- NOTE | 2022-12-25 16:35 | NUR ---
MS RN DISCHARGED NOTE DISCHARGED PATIENT TO [facility] WHERE PATIENT ORIGINALLY CAME. ENDORSEMENT MADE WITH EUGENIO TATE OF [facility]. PT TAKEN BY 2 EMT'S AWAKE IN BED, A/O X1, NON VERBAL, VITAL SIGNS TAKEN: bp-135/72; TEMP-98.5; RR-18; VA-82; SPO2-98. IV LINE REMOVED, NO COMPLAIN OF PAIN AND DISCOMFORT AT THIS TIME, ON ROOM AIR, NO SOB WAS OBSERVED, BED IN LOW POSITION AT THE TIME, ALL BELONGINGS ACCOUNTED FOR, 2 RNs SIGNED IN BEHALF OF THE PATIENT WHO'S UNABLE TO SIGN.
== END 2022-12-25 16:32 | DRG 871 ==
LOC: ER 14:07 → TELE 19:28 → MED 12-23 17:06
PROVIDERS: ADMIT Nurse Practitioner Acute Care; ATTEND Nurse Practitioner Acute Care
PROC: 0DB68ZX Excision of Stomach, Via Natural or Artificial Opening Endoscopic, Diagnostic (ICD-10-PCS; principal; 2022-12-23)
DX: A41.9 Sepsis, unspecified organism (principal); G93.41 Metabolic encephalopathy; K21.01 Gastro-esophageal reflux disease with esophagitis, with bleeding; D68.59 Other primary thrombophilia; N39.0 Urinary tract infection, site not specified; D62 Acute posthemorrhagic anemia; K44.9 Diaphragmatic hernia without obstruction or gangrene; I48.0 Paroxysmal atrial fibrillation; Z79.01 Long term (current) use of anticoagulants; E78.5 Hyperlipidemia, unspecified; F94.0 Selective mutism; E11.9 Type 2 diabetes mellitus without complications; Z79.4 Long term (current) use of insulin; G30.9 Alzheimer's disease, unspecified; F02.80 Dementia in other diseases classified elsewhere, unspecified severity, without behavioral disturbance, psychotic disturbance, mood disturbance, and anxiety; K31.89 Other diseases of stomach and duodenum; Z87.11 Personal history of peptic ulcer disease; D69.6 Thrombocytopenia, unspecified; I10 Essential (primary) hypertension; Z86.16 Personal history of COVID-19; Z87.01 Personal history of pneumonia (recurrent); Z74.09 Other reduced mobility; B96.81 Helicobacter pylori [H. pylori] as the cause of diseases classified elsewhere; B96.20 Unspecified Escherichia coli [E. coli] as the cause of diseases classified elsewhere
CPT/HCPCS: 36415; 71045-TC; 80048-TC; 80076-TC; 81001; 82962-TC; 83605-TC; 83735-TC; 84100-TC; 85025-TC; 85027-TC; 85730-TC; 86850-TC; 87040-TC; 87081-TC; 87086-TC; 88305-TC; 88312-TC; 88342; 92526; 92611-TC; A4223; C9113; C9803; G0378; J0696; J1815; J2185; J2405; J2704; J3490; J7030; J7042

== ENCOUNTER 2023-01-11 16:29 | Inpatient (IN) | payer MEDICARE, OTHER ==
[~2023-01-11] VITALS: Ht 170.2 cm; Wt 48.1 kg
[~2023-01-11 16:29] MED LIST changes: -ACET-868 PO; +APIX2.5T PO; -ATOR10TA PO; +CLON0.1T PO; -CLOT15CR27 TP; -CLOT15CR35 TP; -CRAN3875 PO; -DIPH25CA83 PO; -DIVA250T4 PO; +FAMO20TA8 PO; +INSU100V7 SQ; +MAG30ORA PO; +MEGE400O5 PO; -MEROPENEM 500 MG in IV NS 0.9% 50 ML IV SCH; -MINE454O3 TP; -MIRT-121 PO; +ONDA4TAB5 PO; +PANT40SU2 PO; -PANT40TA49 PO; -Prosource PO
--- NOTE | 2023-01-11 17:20 | NUR ---
MOVE SHEET SUBMITTED.
--- NOTE | 2023-01-11 17:31 | NUR ---
ESTABLISHED IV ACCESS, 20G RIGHT AC. BLOOD COLLECTED AND SENT TO LAB.
[2023-01-11 17:43] LABS: BASOPHILS % (AUTO) 0.4 % (0.0-2.0); EOSINOPHILS % (AUTO) 1.2 % (0.0-6.0); HEMATOCRIT 37 % (33-45); HEMOGLOBIN 12.1 g/dL (11.5-14.8); LYMPHOCYTES # (AUTO) 1.7 K/uL (0.8-4.8); LYMPHOCYTES % (AUTO) 15.5 % (20.0-44.0); MEAN CORPUSCULAR HGB CONC 33 g/dl (31.0-36.0); MEAN CORPUSCULAR VOLUME 95 fL (82-100); MONOCYTES # (AUTO) 0.7 K/uL (0.1-1.30); MONOCYTES % (AUTO) 6.7 % (2.0-12.0); NEUTROPHILS # (AUTO) 8.2 K/uL (1.8-8.9); NEUTROPHILS % (AUTO) 76.2 % (43.0-81.0); PLATELET COUNT (AUTO) 386 K/uL (150-450); RED BLOOD CELL COUNT(AUTO) 3.85 MIL/uL (4.0-5.2); WHITE BLOOD COUNT (AUTO) 10.7 K/uL (4.3-11.0)
[2023-01-11 17:57] LABS: CALCIUM, SERUM 9.7 mg/dL (8.5-10.1); CARBON DIOXIDE 25 mmol/L (21-32); CHLORIDE 105 mmol/L (98-107); CREATININE 0.8 mg/dL (0.6-1.3); GLUCOSE 178 mg/dL (74-106); POTASSIUM 4.2 mmol/L (3.5-5.1); SODIUM SERUM 139 mmol/L (136-145); UREA NITROGEN, BLOOD 10 mg/dL (7-18)
[2023-01-11 18:03] LABS: ALANINE AMINOTRANSFERASE 17 U/L (12-78); ALBUMIN 2.3 g/dL (3.4-5.0); ALKALINE PHOSPHATASE 126 U/L (46-116); ASPARTATE AMINOTRANSFERASE 12 U/L (15-37); BILIRUBIN,DIRECT 0.1 mg/dL (0.0-0.2); BILIRUBIN,TOTAL 0.3 mg/dL (0.2-1.0); TOTAL PROTEIN, SERUM 7.3 g/dL (6.4-8.2)
[2023-01-11] MEDS ORDERED: IV NS 0.9% 500 ML IV ONE (18:30)
[2023-01-11] MEDS ORDERED: HYDROCODONE/APAP 10/325MG TABLET PO ONE (18:30)
--- NOTE | 2023-01-11 18:32 | NUR ---
500CC NS STARTED. ENDTIME 1900.
[2023-01-11] MEDS ORDERED: MEGE400O4 PO (18:37)
[2023-01-11] MEDS ORDERED: ACET-868 PO (18:37)
[2023-01-11] MEDS ORDERED: PANT40TA2 PO (18:37)
[2023-01-11] MEDS ORDERED: ASCO-340 PO (18:37)
[2023-01-11] MEDS ORDERED: MULT-594 PO (18:37)
[2023-01-11] MEDS ORDERED: ZINC50TA65 PO (18:37)
[2023-01-11] MEDS ORDERED: DIVA125T32 PO (18:37)
--- NOTE | 2023-01-11 18:44 | NUR ---
COVID SWAB COLLECTED AND SENT TO LAB
--- NOTE | 2023-01-11 22:01 | NUR ---
SERGO ORELLANA DNP AT PT'S BEDSIDE
[2023-01-11] MEDS ORDERED: LORAZEPAM INJ 2 MG/ML VIAL IV PRN (23:00)
[2023-01-11] MEDS ORDERED: MORPHINE SULFATE INJ 2 MG/ML DISP.SYRIN IV PRN (23:00)
[2023-01-11] MEDS ORDERED: Z GUARD REMEDY 4 OZ OINT TP PRN (23:00)
[2023-01-11] MEDS ORDERED: ONDANSETRON HCL/PF 4 MG/2 ML VIAL IVP PRN (23:00)
--- NOTE | 2023-01-11 23:17 | NUR ---
REPORT GIVEN TO CHARMAINE Lyons RN FOR ERICA
--- NOTE | 2023-01-11 23:28 | NUR ---
PT TRANSFERRED TO [facility]-2 VIA ACLS PROTOCOL. VSS. ALL BELONGINGS WITH PT.
[2023-01-11] MEDS ORDERED: DEXTROSE 50%-WATER 50 ML DISP.SYRIN IV PRN (23:30)
[2023-01-11] MEDS: PANTOPRAZOLE 40 MG VIAL IV SCH (23:56)
[2023-01-12] MEDS: BLOOD SUGAR DIAGNOSTIC 1 EACH STRIP IN SCH ×5 (00:14→17:24)
[2023-01-12] MEDS: INSULIN REGULAR, HUMAN 100 UNIT/ML 3 ML VIAL SQ PRN ×5 (00:15→17:24)
--- NOTE | 2023-01-12 00:15 | NUR ---
noc rn note patient just had X1 coffee colored emesis. but not coffee ground. just given the protonix as scheduled.will monitor. patient cleaned and made comfortable for now.
[2023-01-12 00:26] VITALS: BP 127/79
[2023-01-12] MEDS: IV NS 0.9% 1,000 ML IV PRN (00:55)
--- NOTE | 2023-01-12 03:30 | NUR ---
noc rn note Patient had coffee colored emesis again. Patient maintained in up right position. will monitor.
--- NOTE | 2023-01-12 04:50 | NUR ---
noc rn note Urine, clean catch collected at this time. Awaiting lab personnel pick-up.
[2023-01-12 06:31] LABS: BASOPHILS % (AUTO) 0.4 % (0.0-2.0); EOSINOPHILS % (AUTO) 0.7 % (0.0-6.0); HEMATOCRIT 32 % (33-45); HEMOGLOBIN 10.6 g/dL (11.5-14.8); LYMPHOCYTES # (AUTO) 1.5 K/uL (0.8-4.8); LYMPHOCYTES % (AUTO) 12.7 % (20.0-44.0); MEAN CORPUSCULAR HGB CONC 33 g/dl (31.0-36.0); MEAN CORPUSCULAR VOLUME 96 fL (82-100); MONOCYTES # (AUTO) 0.8 K/uL (0.1-1.30); MONOCYTES % (AUTO) 6.9 % (2.0-12.0); NEUTROPHILS # (AUTO) 9.1 K/uL (1.8-8.9); NEUTROPHILS % (AUTO) 79.3 % (43.0-81.0); PLATELET COUNT (AUTO) 325 K/uL (150-450); RED BLOOD CELL COUNT(AUTO) 3.38 MIL/uL (4.0-5.2); WHITE BLOOD COUNT (AUTO) 11.4 K/uL (4.3-11.0)
--- NOTE | 2023-01-12 07:12 | NUR ---
noc rn closing all needs attended. all scheduled medications administered. no significant change with patient. will endorse to morning shift rn for continuity of care.
[2023-01-12 07:14] LABS: CALCIUM, SERUM 8.7 mg/dL (8.5-10.1); CARBON DIOXIDE 19 mmol/L (21-32); CHLORIDE 106 mmol/L (98-107); CREATININE 0.5 mg/dL (0.6-1.3); GLUCOSE 185 mg/dL (74-106); MAGNESIUM 1.6 mg/dL (1.8-2.4); PHOSPHORUS 3.1 mg/dL (2.5-4.9); POTASSIUM 3.3 mmol/L (3.5-5.1); SODIUM SERUM 136 mmol/L (136-145); UREA NITROGEN, BLOOD 11 mg/dL (7-18)
[2023-01-12] MEDS ORDERED: Magnesium 1GM/D5W 100ML PREMIX 100 ML IV SCH (07:30)
[2023-01-12 07:42] LABS: COLOR,URINE YELLOW (YELLOW); PH,URINE 6.5 (5.0-8.0)
[2023-01-12 07:43] LABS: BILIRUBIN,URINE NEGATIVE (NEGATIVE); PROTEIN,URINE 2+ mg/dl (NEGATIVE); UGLUCOSE NEGATIVE (NEGATIVE)
[2023-01-12 07:44] LABS: LEUKOCYTE ESTERASE ,URINE 3+ (NEGATIVE); NITRITE, URINE NEGATIVE (NEGATIVE); UROBILINOGEN,URINE 0.2 EU/dL (0.2)
[2023-01-12 07:47] LABS: BACTERIA,URINE Many /HPF (None Seen); WBC,URINE TOO NUMEROUS TO COUN /HPF (0-3)
[2023-01-12 07:48] LABS: SQUAMOUS EPITHELIAL CELL,UR Few /HPF (None Seen)
--- NOTE | 2023-01-12 07:50 | NUR ---
MS RN OPENING NOTE PT RESTING COMFORTABLY IN BED. A/O X1. PT STABLE ON RA, BREATHING EVEN AND NON LABORED. NO SOB OR SS OF RESPIRATORY DISTRESS AT THIS TIME. NPO FOR SWALLOW EVALUATION. IV ACCESS R AC #20G, RUNNING NS @50ML/HR, INTACT AND PATENT. SAFETY PRECAUTIONS IN PLACE. BED IN LOWEST LOCKED POSITION, HOB ELEVATED, SIDE RAILS UP X3, AND CALL LIGHT AND TABLE WITHIN REACH. WILL CONTINUE TO MONITOR.
[2023-01-12 08:14] VITALS: BP 117/68
[2023-01-12] MEDS: POTASSIUM CL. PREMIX PERIPHER. 50 ML IV SCH ×4 (08:29→11:28)
[2023-01-12] MEDS: PANTOPRAZOLE 40 MG VIAL IV SCH ×2 (09:39→20:05)
[2023-01-12 12:14] LABS: HEMOGLOBIN 10.9 g/dL (11.5-14.8)
[2023-01-12 16:10] VITALS: BP 146/98
--- NOTE | 2023-01-12 18:46 | NUR ---
MS RN CLOSING NOTE PT RESTING COMFORTABLY IN BED. A/O X1. PT STABLE ON RA, BREATHING EVEN AND NON LABORED. NO SOB OR SS OF RESPIRATORY DISTRESS AT THIS TIME. PT IS NPO. NO EMESIS DURING THE SHIFT. IV ACCESS R AC #20G, RUNNING NS @50ML/HR, INTACT AND PATENT. SAFETY PRECAUTIONS IN PLACE. BED IN LOWEST LOCKED POSITION, HOB ELEVATED, SIDE RAILS UP X3, AND CALL LIGHT AND TABLE WITHIN REACH. WILL CONTINUE TO MONITOR.
--- NOTE | 2023-01-12 19:45 | NUR ---
RN Opening Notes Received pt in bed, asleep, awakens to verbal stimuli. AOx1, patient not answering questions. On RA and tolerating well. No SOB noted. No s/sx of respiratory distress noted. IV access in RAC #20G running NS @ 50 mL/hr. Safety precautions in place: bed in lowest, locked position, siderails upX2, and brakes on. Table and call light within reach. All needs met at this time.
[2023-01-12 20:00] VITALS: BP 129/75
[2023-01-12 20:38] LABS: HEMOGLOBIN 10.2 g/dL (11.5-14.8)
[2023-01-13] MEDS: INSULIN REGULAR, HUMAN 100 UNIT/ML 3 ML VIAL SQ PRN ×4 (00:50→17:35)
[2023-01-13] MEDS: BLOOD SUGAR DIAGNOSTIC 1 EACH STRIP IN SCH ×4 (00:50→17:35)
[2023-01-13] MEDS: IV NS 0.9% 1,000 ML IV PRN (04:15)
--- NOTE | 2023-01-13 06:54 | NUR ---
RN Closing Notes Pt in bed, asleep, awakens to verbal stimuli. AOx1, patient not answering questions. On RA and tolerating well. No SOB noted. No s/sx of respiratory distress noted. IV access in RAC #20G running NS @ 50 mL/hr. All orders carried out. All needs met. Pt kept clean and dry. Safety precautions in place: bed in lowest, locked position, siderails upX2, and brakes on. Table and call light within reach. Will endorse to oncoming shift for ERICA.
--- NOTE | 2023-01-13 07:00 | NUR ---
MS RN OPENING NOTES: RECEIVED PT IN BED ASLEEP EASILY AROUSED WITH STIMULI A/OX1. NO SOB OR CARDIAC DISTRESS .ON ROOM AIR AND TOLERATING WELL. DENIES PAIN AT THIS TIME.IV ACCESS ON RAC GAUGE 20 PATENT, INTACT AND INFUSING IV FLUID NS @50ML/HR. MAINTAINED NPO. SAFETY MEASURES MAINTAINED: BED LOCKED AND IN LOWEST POSITION,SIDE RAILS UP X 2CALL LIGHT IN EASY REACH FOR HELP AND WILL MONITOR PT ACCORDINGLY.
[2023-01-13 08:00] VITALS: BP 111/72
[2023-01-13] MEDS: PANTOPRAZOLE 40 MG VIAL IV SCH ×2 (09:26→21:26)
[2023-01-13 09:30] LABS: BASOPHILS % (AUTO) 0.6 % (0.0-2.0); EOSINOPHILS % (AUTO) 2.2 % (0.0-6.0); HEMATOCRIT 30 % (33-45); HEMOGLOBIN 9.9 g/dL (11.5-14.8); LYMPHOCYTES % (AUTO) 26.7 % (20.0-44.0); MEAN CORPUSCULAR HGB CONC 34 g/dl (31.0-36.0); MEAN CORPUSCULAR VOLUME 94 fL (82-100); MONOCYTES # (AUTO) 0.6 K/uL (0.1-1.30); NEUTROPHILS # (AUTO) 4.7 K/uL (1.8-8.9); NEUTROPHILS % (AUTO) 62.5 % (43.0-81.0); PLATELET COUNT (AUTO) 342 K/uL (150-450); RED BLOOD CELL COUNT(AUTO) 3.15 MIL/uL (4.0-5.2); WHITE BLOOD COUNT (AUTO) 7.5 K/uL (4.3-11.0)
[2023-01-13 09:44] LABS: CALCIUM, SERUM 8.7 mg/dL (8.5-10.1); CARBON DIOXIDE 20 mmol/L (21-32); CHLORIDE 106 mmol/L (98-107); CREATININE 0.6 mg/dL (0.6-1.3); GLUCOSE 126 mg/dL (74-106); POTASSIUM 3.5 mmol/L (3.5-5.1); SODIUM SERUM 136 mmol/L (136-145); UREA NITROGEN, BLOOD 8 mg/dL (7-18)
[2023-01-13 16:00] VITALS: BP 148/84
--- NOTE | 2023-01-13 18:42 | NUR ---
MS RN CLOSING NOTES: PT IN BED ASLEEP EASILY AROUSED WITH STIMULI A/OX1. NO SOB OR CARDIAC DISTRESS .ON ROOM AIR AND TOLERATING WELL. DENIES PAIN AT THIS TIME.IV ACCESS ON RAC GAUGE 20 PATENT, INTACT AND INFUSING IV FLUID NS @50ML/HR.ON PUREED DIET AND TOLERATING WELL, CONSUMED DINNER 75%. SAFETY MEASURES MAINTAINED: BED LOCKED AND IN LOWEST POSITION,SIDE RAILS UP X 2CALL LIGHT IN EASY REACH FOR HELP . ENDORSED TO METAL DRILLING MACHINE OPERATOR RN FOR CONTINUITY OF CARE.
--- NOTE | 2023-01-13 19:55 | NUR ---
RN OPENING NOTE PATIENT AWAKE IN BED. A/OX1 (NAME). NO S/S OF DISTRESS, BREATHING WITHOUT DIFFICULTY ON ROOM AIR. RAC #20 INTACT AND PATENT W/ NS 50ML/HR. SAFETY MEASURES IN PLACE: BED LOCKED AND AT LOWEST POSITION, RAILS UP X2, CALL CANTU WITHIN REACH. WILL CONTINUE TO MONITOR PATIENT.
[2023-01-13 20:00] VITALS: BP 138/52
[2023-01-14] MEDS: BLOOD SUGAR DIAGNOSTIC 1 EACH STRIP IN SCH ×3 (00:34→12:00)
[2023-01-14] MEDS: INSULIN REGULAR, HUMAN 100 UNIT/ML 3 ML VIAL SQ PRN ×3 (00:35→12:01)
--- NOTE | 2023-01-14 06:11 | NUR ---
RN CLOSING NOTE PATIENT IS AWAKE IN BED. A/OX1 . NO S/S OF DISTRESS, BREATHING WITHOUT DIFFICULTY ON ROOM AIR. RAC #20 INTACT AND PATENT W/ NS 50ML/HR. SAFETY MEASURES IN PLACE: BED LOCKED AND AT LOWEST POSITION, RAILS UP X2, CALL CANTU WITHIN REACH. WILL ENDORSE TO NEXT SHIFT FOR ERICA.
[2023-01-14 06:27] LABS: CARBON DIOXIDE 20 mmol/L (21-32); CHLORIDE 105 mmol/L (98-107); CREATININE 0.7 mg/dL (0.6-1.3); GLUCOSE 101 mg/dL (74-106); POTASSIUM 3.4 mmol/L (3.5-5.1); SODIUM SERUM 137 mmol/L (136-145); UREA NITROGEN, BLOOD 7 mg/dL (7-18)
[2023-01-14 06:28] LABS: BASOPHILS % (AUTO) 0.7 % (0.0-2.0); EOSINOPHILS % (AUTO) 2.5 % (0.0-6.0); HEMATOCRIT 31 % (33-45); HEMOGLOBIN 10.3 g/dL (11.5-14.8); LYMPHOCYTES # (AUTO) 1.9 K/uL (0.8-4.8); LYMPHOCYTES % (AUTO) 26.6 % (20.0-44.0); MEAN CORPUSCULAR HGB CONC 33 g/dl (31.0-36.0); MEAN CORPUSCULAR VOLUME 97 fL (82-100); MONOCYTES # (AUTO) 0.6 K/uL (0.1-1.30); MONOCYTES % (AUTO) 7.6 % (2.0-12.0); NEUTROPHILS # (AUTO) 4.5 K/uL (1.8-8.9); NEUTROPHILS % (AUTO) 62.6 % (43.0-81.0); PLATELET COUNT (AUTO) 351 K/uL (150-450); RED BLOOD CELL COUNT(AUTO) 3.25 MIL/uL (4.0-5.2); WHITE BLOOD COUNT (AUTO) 7.3 K/uL (4.3-11.0)
[2023-01-14] MEDS: IV NS 0.9% 1,000 ML IV PRN (06:34)
--- NOTE | 2023-01-14 07:00 | NUR ---
MS RN OPENING NOTES: RECEIVED PT IN BED ASLEEP EASILY AROUSED WITH STIMULI A/OX1. NO SOB OR CARDIAC DISTRESS .ON ROOM AIR AND TOLERATING WELL. DENIES PAIN AT THIS TIME.BILATERAL MITTENS NOTED. IV ACCESS ON RAC GAUGE 20 PATENT, INTACT AND INFUSING IV FLUID NS @50ML/HR. SAFETY MEASURES MAINTAINED: BED LOCKED AND IN LOWEST POSITION,SIDE RAILS UP X 2CALL LIGHT IN EASY REACH FOR HELP AND WILL MONITOR PT ACCORDINGLY.
[2023-01-14 08:00] VITALS: BP 168/86
[2023-01-14] MEDS: PANTOPRAZOLE 40 MG VIAL IV SCH (08:46)
[2023-01-14] MEDS ORDERED: POTASSIUM CHLORIDE 20 MEQ TAB.PRT.SR PO ONE (09:00)
[2023-01-14] MEDS ORDERED: CLOTRIMAZOLE 1% 15 GM TUBE TP SCH (09:00)
--- NOTE | 2023-01-14 14:28 | NUR ---
GIS COORDINATOR NOTES: PT DC BACK TO [facility] REPORT GIVEN TO CEDRIC BECKER. DISCHARGE PACKET GIVEN TO EMT.PT A/O X1. NO SOB OR CARDIAC DISTRESS NIOTED. BELONGINGS WITH PT ONLY CLOTHES, PT UNABLE TO SIGN THE FORM SHE IS CONFUSED. BODY ASSESSMENT DONE PT HAS SKIN ISSUES AND TOOK PICTURES FILED TO PT'S CHART. REMOVED IV ACCESS AND REMOVED IDENTIFICATION BAND. PT LEFT THE UNIT STABLE ACCOMPANIED BY GENERAL UTILITY MAINTENANCE REPAIRER VIA ERIC.
== END 2023-01-14 14:25 | DRG 368 ==
LOC: ER 16:32 → TELE 22:21 → MED 23:33
PROVIDERS: ADMIT Nurse Practitioner Acute Care; ATTEND Internal Medicine
DX: K21.01 Gastro-esophageal reflux disease with esophagitis, with bleeding (principal); G93.41 Metabolic encephalopathy; D68.59 Other primary thrombophilia; K92.0 Hematemesis; I48.0 Paroxysmal atrial fibrillation; Z20.822 Contact with and (suspected) exposure to COVID-19; E11.9 Type 2 diabetes mellitus without complications; I10 Essential (primary) hypertension; R33.9 Retention of urine, unspecified; Z87.81 Personal history of (healed) traumatic fracture; Z79.4 Long term (current) use of insulin; Z79.899 Other long term (current) drug therapy; K44.9 Diaphragmatic hernia without obstruction or gangrene; Z86.39 Personal history of other endocrine, nutritional and metabolic disease; Z74.09 Other reduced mobility; Z86.19 Personal history of other infectious and parasitic diseases; E78.5 Hyperlipidemia, unspecified; G30.9 Alzheimer's disease, unspecified; F02.80 Dementia in other diseases classified elsewhere, unspecified severity, without behavioral disturbance, psychotic disturbance, mood disturbance, and anxiety; K29.50 Unspecified chronic gastritis without bleeding
CPT/HCPCS: 36415; 80048-TC; 80076-TC; 81001; 82962-TC; 83605-TC; 83735-TC; 84100-TC; 84484-TC; 85025-TC; 85027-TC; 85730-TC; 86850-TC; 87081-TC; 87086-TC; 92526; 92611-TC; A4223; C9113; C9803; G0378; J1815; J3475; J3480; J7030

== ENCOUNTER 2023-09-15 21:57 | Emergency (ER) | payer MEDICARE, OTHER ==
[~2023-09-15] VITALS: Ht 157.5 cm; Wt 49.9 kg
[~2023-09-15 21:57] MED LIST changes: +ACET-868 PO; -APIX2.5T PO; +ASCO-340 PO; -CLON0.1T PO; +DIVA125T32 PO; -FAMO20TA8 PO; +MEGE400O4 PO; -MEGE400O5 PO; +MULT-594 PO; -NUT.237L45 PO; -PANT40SU2 PO; +PANT40TA2 PO; +ZINC50TA65 PO
[2023-09-15 22:01] VITALS: BP 99/64; TEMP 97.2; O2SAT 88
== END 2023-09-15 22:20 ==
LOC: ER 21:59
DX: I46.9 Cardiac arrest, cause unspecified (principal)